=== PATIENT | female | born 1990 | race Caucasian/White ===

== ENCOUNTER 2020-05-12 21:56 | Emergency (ER) | payer OTHER ==
[~2020-05-12] VITALS: Ht 170 cm; Wt 99.7 kg
--- NOTE | 2020-05-12 22:07 | ED Cardiac General ---
History of Present Illness General Chief Complaint: Cardiac/General Problems Stated Complaint: PALPITATIONS Source: patient Exam Limitations: no limitations (OVI ANTONIO APRN) History of Present Illness Date Seen by Provider: May 12, 2020 Time Seen by Provider: 22:05 Initial Comments To ER with reports of palpitations. She had been feeling fine all day. They went shopping at [employer] in [place] when she became tachycardic and short of breath and "blacked out" for only a few seconds. She then went to [facility] in [place] and waited for about 5 hours and decided to come here. She has persistent sensation of tachycardia. She feels like her heart is beating fast she states. She also has some persistent shortness of breath. No cough no fevers. Timing/Duration: changing over time Severity: moderate Location: central Prior CP/Workup: no prior chest pain NTG SL SEO MARKETING SPECIALIST: No ASA po SEO MARKETING SPECIALIST: No Associated Systoms: Denies Symptoms (OVI ANTONIO APRN) Timing/Duration: 4-6 hours Prior CP/Workup: echocardiography (per patient, showed a mitral valve "leak" ), stress test (normal ) (OBED HUBBARD,MED STUDENT) Allergies and Home Medications Allergies Coded Allergies: bisacodyl (Verified Allergy, Unknown, 05/12/20) Patient Home Medication List Home Medication List Reviewed: Yes (OVI ANTONIO APRN) Review of Systems Review of Systems Constitutional: see HPI EENTM: No Symptoms Reported Respiratory: See HPI, Shortness of Air ( there were over 5) Cardiovascular: See HPI, Chest Pain Gastrointestinal: No Symptoms Reported Genitourinary: No Symptoms Reported Musculoskeletal: no symptoms reported Skin: no symptoms reported Psychiatric/Neurological: No Symptoms Reported Endocrine: No Symptoms Reported (OVI ANTONIO APRN) Gastrointestinal: Denies Nausea, Denies Vomiting Psychiatric/Neurological: Headache (mild frontal and posterior) (AMI HILL MD) Past Tgfzsdi-Ngukwi-Bldjmx Hx Patient Social History Recent Foreign Travel: No Contact w/Someone Who Travel: No (OVI ANTONIO APRN) Past Medical History Abdominal (gastric bypass ) Heart Murmur (mitral valve regurg ) (OBED HUBBARD,MED STUDENT) Physical Exam Vital Signs Capillary Refill : (OVI ANTONIO APRN) Height, Weight, BMI Height: '" Weight: lbs. oz. kg; BMI Method: General Appearance: No Apparent Distress, WD/WN, Anxious HEENT: PERRL/EOMI, TMs Normal Respiratory: No Accessory Muscle Use, No Respiratory Distress Cardiovascular: Regular Rate, Rhythm, Normal Peripheral Pulses, Other (rhythm is sinus rate is anywhere from 85-105. No ectopy.) Gastrointestinal: Normal Bowel Sounds, Non Tender, Soft Extremity: Normal Capillary Refill, Normal Inspection Neurologic/Psychiatric: Alert, Oriented x3 Skin: Normal Color, Warm/Dry (OVI ANTONIO METAL CONTROL COORDINATOR) Respiratory: Chest Non Tender (tenderness to palpation over ribs 2-5 anteriorly and laterally on the left ) (OBED HUBBARD,MED STUDENT) Progress/Results/Core Measures Progress Progress Note : Progress Note 9032: I have assumed care of the patient from Ovi Antonio pending labs and x- ray. No acute finding on chest x-ray. EKG does not show any significant abn ormalities. Labs have been reviewed and showed no concerning findings. She does follow with Dr. Rand. She also has review trainer in [place]. She was instructed to follow-up with her review trainer related to this. Also admits that she has migraine headaches that she only takes Botox for and she does have a mild headache today that may be a migraine variant/equivalent and this may be part of the cause of the situation today. We discussed further options for evaluation and treatment she would like to just go home and rest which I think is reasonable as well. Discharged home with return precautions. Patient verbalize understanding instructions and agreement with plan. (AMI HILL MD) Initial ECG Rhythm: Normal Sinus (OBED HUBBARD,MED STUDENT) Departure Impression Primary Impression: Syncope Qualified Codes: R55 - Syncope and collapse Additional Impressions: Palpitations Migraine Qualified Codes: G43.909 - Migraine, unspecified, not intractable, without status migrainosus Disposition: 01 HOME, SELF-CARE Condition: Improved Departure-Patient Inst. Decision time for Depature: 23:26 (AMI HILL MD) Patient Instructions: Syncope (Fainting) (DC), Migraines (DC), Palpitations (DC) Add. Discharge Instructions: All discharge instructions reviewed with patient and/or family. Voiced understanding. Continue home medications as previously prescribed. Follow-up with your primary care doctor and your review trainer for recheck and further evaluation. Call your review trainer for appointment. Return for worse pain, fever, vomiting, weakness, breathing problems or other concerns as needed. OVI ANTONIO APRN May 12, 2020 22:07 OBED HUBBARD,MED STUDENT May 12, 2020 22:27 AMI HILL MD May 12, 2020 23:28
--- NOTE | 2020-05-12 22:13 | ED Chest Pain ---
General Chief Complaint: Cardiac/General Problems Stated Complaint: PALPITATIONS Source: patient History of Present Illness Date Seen by Provider: May 12, 2020 Time Seen by Provider: 22:03 Timing/Duration: 4-6 hours Severity/Quality: moderate, dull, pressure Location: substernal, central Radiation: arms (leftarm ) Activities at Onset: activity (atthe store) Allergies and Home Medications Allergies Coded Allergies: bisacodyl (Verified Allergy, Unknown, 05/12/20) Past Rheylxr-Xjimaw-Drgxhh Hx Patient Social History Recent Foreign Travel: No Contact w/Someone Who Travel: No Physical Exam Vital Signs Capillary Refill : Height, Weight, BMI Height: '" Weight: lbs. oz. kg; BMI Method: OBED HUBBARD,MED STUDENT May 12, 2020 22:13
[2020-05-12] MEDS ORDERED: LORazepam INJ 2 MG/ML (ATIVAN) VIAL IVP ONE (22:30)
[2020-05-12 22:37] LABS: HEMOGLOBIN 14.4 g/dL (11.5-16.0); WHITE BLOOD COUNT 9.7 10^3/uL (4.3-11.0)
[2020-05-12 22:44] LABS: CHLORIDE 105 MMOL/L (98-107); POTASSIUM 3.6 MMOL/L (3.6-5.0); SODIUM 141 MMOL/L (135-145)
[2020-05-12 22:45] LABS: CALCIUM 9.2 MG/DL (8.5-10.1)
[2020-05-12 22:46] LABS: GLUCOSE 143 MG/DL (70-105)
[2020-05-12 22:47] LABS: CARBON DIOXIDE 24 MMOL/L (21-32)
[2020-05-12 22:50] LABS: CREATININE SERUM 0.79 MG/DL (0.60-1.30); GFR ESTIMATED > 60
[2020-05-12 22:51] LABS: BUN/CREATININE RATIO 14
[2020-05-12 23:37] VITALS: BP 138/89
--- NOTE | 2020-05-13 07:16 | Diagnostic Imaging Report ---
INDICATION: Palpitations. EXAMINATION: Chest 05/12/2020 FINDINGS: The cardiomediastinal silhouette is unremarkable. The pulmonary vasculature is within normal limits. The lungs and pleural spaces are clear. IMPRESSION: No evidence of an acute cardiopulmonary process. Dictated by: Dictated on workstation # [id number]
== END 2020-05-12 23:38 | disposition home or self-care (01) ==
LOC: ER 22:00
DX: R55 Syncope and collapse (principal); R00.2 Palpitations; F41.9 Anxiety disorder, unspecified; G43.909 Migraine, unspecified, not intractable, without status migrainosus; Z88.8 Allergy status to other drugs, medicaments and biological substances
CPT/HCPCS: 36415; 71045; 80048; 84443; 84703; 85027; 85379; 93005

== ENCOUNTER 2020-05-28 19:20 | Emergency (ER) | payer OTHER ==
[~2020-05-28] VITALS: Ht 170 cm; Wt 100.0 kg
[2020-05-28 19:26] VITALS: BP 116/80
--- NOTE | 2020-05-28 19:32 | ED General ---
General Stated Complaint: MIGRAINE;DIZZINESS Source of Information: Patient Exam Limitations: No Limitations History of Present Illness Date Seen by Provider: May 28, 2020 Time Seen by Provider: 19:30 Initial Comments To ER with reports of a migraine headache. She has a history of these since she was 4 years old. States this began mild and slowly got progressively worse. She is on morphine for history of the Alonso Danlos connective tissue disorder and fibromyalgia. She is unable to tolerate any NSAID she informs me due to history of gastric bypass. No head trauma. She does have photophobia and nausea. Timing/Duration: 1-2 Days Severity: Moderate Associated Systoms: Headaches Allergies and Home Medications Allergies Coded Allergies: bisacodyl (Verified Allergy, Unknown, 05/12/20) Patient Home Medication List Home Medication List Reviewed: Yes Review of Systems Review of Systems Constitutional: see HPI EENTM: see HPI Respiratory: no symptoms reported Cardiovascular: no symptoms reported Genitourinary: no symptoms reported Musculoskeletal: no symptoms reported Skin: no symptoms reported Psychiatric/Neurological: Headache Past Gcxwphw-Jpnsga-Fgvnxk Hx Patient Social History Type Used: Cigarettes Recent Foreign Travel: No Contact w/Someone Who Travel: No Past Medical History Abdominal Heart Murmur Physical Exam Vital Signs Vital Signs - First Documented 05/28/20 19:26 Temp 36.8 Pulse 81 Resp 16 B/P (MAP) 116/80 (92) Pulse Ox 99 O2 Delivery Room Air Capillary Refill : Height, Weight, BMI Height: '" Weight: lbs. oz. kg; 34.00 BMI Method: General Appearance: No Apparent Distress, WD/WN Eyes: Bilateral Eye Normal Inspection, Bilateral Eye PERRL, Bilateral Eye EOMI Neck: Full Range of Motion, Normal Inspection Respiratory: No Accessory Muscle Use, No Respiratory Distress Gastrointestinal: Non Tender, Soft Extremity: Normal Capillary Refill, Normal Inspection Neurologic/Psychiatric: Alert, Oriented x3 Skin: Normal Color, Warm/Dry Progress/Results/Core Measures Suspected Sepsis SIRS Temperature: Pulse: Respiratory Rate: Blood Pressure / Mean: Results/Orders My Orders Orders - OVI CASANOVA APRN Diphenhydramine Injection (Benadryl Inje (05/28/20 19:45) Prochlorperazine Injection (Compazine In (05/28/20 19:45) Sumatriptan Injection (Imitrex Injection (05/28/20 20:30) Medications Given in ED Current Medications Medications Dose Ordered Sig/Heron Route Start Time Stop Time Status Last Admin Dose Admin Diphenhydramine HCl 50 mg ONCE ONCE IM 05/28/20 19:45 05/28/20 19:46 DC 05/28/20 19:45 50 MG Prochlorperazine Edisylate 10 mg ONCE ONCE IM 05/28/20 19:45 05/28/20 19:46 DC 05/28/20 19:45 10 MG Sumatriptan Succinate 6 mg ONCE ONCE SQ 05/28/20 20:30 05/28/20 20:31 DC 05/28/20 20:28 6 MG Vital Signs/I&O 05/28/20 19:26 Temp 36.8 Pulse 81 Resp 16 B/P (MAP) 116/80 (92) Pulse Ox 99 O2 Delivery Room Air Capillary Refill : Departure Communication (Admissions) 2031-no improvement after Benadryl and Compazine. discssed with her that i dont like opiates for headaches. Recommended Cervical paraspinous injection at C6-C7 bupivacaine with epi which she agrees to 2032-less than one minute after injection, pt calls me to room to report complete resolution of pain. Would like to go home now. Impression Primary Impression: Migraine Disposition: 01 HOME, SELF-CARE Condition: Stable Departure-Patient Inst. Decision time for Depature: 19:31 Referrals: ANÍBAL TRUJILLO MD (PCP) [place] Care Physician [facility] [place] Primary Care Physician MALLORIE STUBBS BRIAN J MD Patient Instructions: HEADACHE Add. Discharge Instructions: 1. Return to ER for any worsening symptoms or other concerns. Follow-up with your doctor later this week. OVI CASANOVA REVIEW COORDINATOR May 28, 2020 19:32
[2020-05-28] MEDS ORDERED: PROCHLORPERAZINE 10 MG/2ML INJ (COMPAZINE) IM ONE (19:45)
[2020-05-28] MEDS ORDERED: diphenhydrAMINE 50 MG/ML INJ (BENADRYL) IM ONE (19:45)
[2020-05-28] MEDS ORDERED: SUMAtriptan 6 MG/0.5 ML (IMITREX) INJ SQ ONE (20:30)
== END 2020-05-28 20:36 | disposition home or self-care (01) ==
LOC: EDUNIT# 19:20 → ER 19:22
DX: G43.909 Migraine, unspecified, not intractable, without status migrainosus (principal); Z88.8 Allergy status to other drugs, medicaments and biological substances
CPT/HCPCS: 99284

== ENCOUNTER 2020-06-05 12:07 | Emergency (ER) | payer OTHER ==
[~2020-06-05] VITALS: Ht 170.1 cm; Wt 98.8 kg
--- NOTE | 2020-06-05 12:32 | ED EENT ---
History of Present Illness General Chief Complaint: Eye Problems Stated Complaint: DOUBLE VISION, UNABLE TO SEE Source: patient Exam Limitations: no limitations History of Present Illness Date Seen by Provider: Jun 05, 2020 Time Seen by Provider: 12:20 Initial Comments Patient is a 29-year-old female who presents to the emergency department today with a chief complaint of double vision. Patient states she had an acute onset of double vision on Tuesday. She states towards the evening time it seemed to get a little bit better but recurred again yesterday in the evening. And then she woke up with that much worse this morning. Patient has a history of "vestibular migraine" she takes morphine for chronic all over body pain and Flexeril as well. She states these medications did not help her double vision. She did see her primary care doctor yesterday as she thought may be she was low on her vitamins (she is a gastric bypass patient). She had a B12 injection and took some extra B12 and states that she felt a little better after that but the vision did not clear. Patient denies any new onset headache. She has a little bit of balance problems because of her double vision. She denies any hearing changes new onset weakness numbness or tingling. No recent fevers chills cough congestion or sick contacts. All other review of systems reviewed and negative except as stated above. Timing/Duration: abrupt Location: eye (R), eye (L) Prearrival Treatment: no prearrival treatment Associated Symptoms: denies symptoms Allergies and Home Medications Allergies Coded Allergies: bisacodyl (Verified Allergy, Unknown, 05/12/20) Patient Home Medication List Home Medication List Reviewed: Yes Review of Systems Review of Systems Constitutional: no symptoms reported Eyes: Blurred Vision, Vision Changes (Blurred vision out of her right eye more than her left eye and vertical described double vision); Denies Contact Lenses Ears: No Symptoms Reported Nose: no symptoms reported Mouth: no symptoms reported Throat: no symptoms reported Respiratory: no symptoms reported Cardiovascular: no symptoms reported : No Musculoskeletal: no symptoms reported Skin: no symptoms reported Hematologic/Lymphatic: No Symptoms Reported Past Jhwceqp-Mwntxh-Kypfcg Hx Patient Social History Alcohol Use: Denies Use Recreational Drug Use: No Smoking Status: Current Everyday Smoker Type Used: Cigarettes 2nd Hand Smoke Exposure: Yes Recent Foreign Travel: No Contact w/Someone Who Travel: No Recent Hopitalizations: No Physical Abuse: No Sexual Abuse: No Mistreated: No Fear: No Immunizations Up To Date Tetanus Booster (TDap): Unknown Seasonal Allergies Seasonal Allergies: No Past Medical History Surgeries: Yes Abdominal Respiratory: No Cardiac: Yes Heart Murmur Neurological: Yes Headaches /Migraines Genitourinary: No Gastrointestinal: No Musculoskeletal: Yes (eds) Fibromyalgia Endocrine: No HEENT: No Cancer: No Psychosocial: No Integumentary: No Blood Disorders: No Physical Exam Vital Signs Vital Signs - First Documented 06/05/20 12:10 Temp 36.7 Pulse 97 Resp 20 B/P (MAP) 123/78 (93) Pulse Ox 98 O2 Delivery Room Air Height, Weight, BMI Height: '" Weight: lbs. oz. kg; 34.00 BMI Method: General Appearance: WD/WN, no apparent distress Eyes: bilateral eye normal inspection, bilateral eye PERRL, bilateral eye EOMI Ears: bilateral ear auricle normal, bilateral ear canal normal, bilateral ear TM normal Nose: normal inspection Mouth/Throat: normal mouth inspection Neck: full range of motion, normal inspection Cardiovascular: regular rate, rhythm, no murmur Respiratory: lungs clear, normal breath sounds, no respiratory distress, no accessory muscle use Gastrointestinal: normal bowel sounds, non tender, soft Neurologic/Psychiatric: magnetic prospecting operator II-XII nml as tested, no motor/sensory deficits, alert, normal mood/affect, oriented x 3, other (Patient is able to complete oammmf-mi-jlwj with minimal difficulty, negative Romberg sign, normal strength and sensation) Skin: normal color, warm/dry Progress/Results/Core Measures Results/Orders My Orders Orders - GIBSON OLIVEROS MD Ct Head Wo (06/05/20 12:26) Vital Signs/I&O 06/05/20 12:10 Temp 36.7 Pulse 97 Resp 20 B/P (MAP) 123/78 (93) Pulse Ox 98 O2 Delivery Room Air Progress Progress Note : Time: 13:08 Progress Note 29-year-old female presents to the emergency department with an acute onset of double vision in the last 2 days. Evaluation today includes physical exam with neurologic evaluation. Patient has no evidence on exam of a extraocular muscle palsy. Funduscopic exam is normal. Patient has binocular double vision in all arellano of gaze. CT scan of the head without contrast is unremarkable. Patient has been seen by her primary care physician and had a B12 injection. I have no objective findings to call ophthalmology urgently. Plan is to patch 1 eye and have the patient follow-up with her hydrochloric manufacturing supervisor/urgent care physician assistant. Patient is agreeable with this plan of care. She verbalized understanding, all questions are sought and answered. 1330 L eye 20/30 R eye 20/40 bilateral - unable to complete eye exam We will patch the patient's right eye and refer her to optometry/ophthalmology Diagnostic Imaging Diagonstic Imaging: CT Plain Films/CT/US/NM/MRI: head Comments [facility] [place] NAME: NATASHA MORENO [facility] REC#: [id number] PT STATUS: PRE ER : 1990 PHYSICIAN: GIBSON OLIVEROS MD ADMIT DATE: 06/05/20/ER Draft Date of Exam:06/05/20 CT HEAD WO PROCEDURE: CT head without contrast. TECHNIQUE: Multiple contiguous axial images were obtained through the brain without the use of intravenous contrast. Auto Exposure Controls were utilized during the CT exam to meet ALARA standards for radiation dose reduction. INDICATION: Blurry vision and vertigo for 2 days COMPARISON: None FINDINGS: The ventricles and cortical sulci are age-appropriate. There is no midline shift or mass effect. No acute intracranial hemorrhage is seen. There is no CT evidence of acute territorial ischemia. The calvarium is intact. Visualized paranasal sinuses are clear. IMPRESSION: 1. No acute intracranial hemorrhage or CT evidence of acute territorial ischemia. Dictated on workstation # [id number] Dict: 06/05/20 1255 Trans: 06/05/20 1301 CV [id number] Interpreted by: NATALEE CROUCH MD Electronically signed by: Departure Impression Primary Impression: Vertical diplopia Disposition: 01 HOME, SELF-CARE Condition: Stable Departure-Patient Inst. Decision time for Depature: 13:10 Referrals: ANÍBAL TRUJILLO MD (PCP/Family) Primary Care Physician Patient Instructions: Double Vision Add. Discharge Instructions: Keep a patch on one eye to improve your vision until you have follow-up with your eye doctor and family practice doctor. Return to the emergency room for any worsening vision changes, severe headache, other emergent concerning symptoms All discharge instructions reviewed with patient and/or family. Voiced understanding. GIBSON OLIVEROS MD Jun 05, 2020 12:32
--- NOTE | 2020-06-05 13:02 | Diagnostic Imaging Report ---
PROCEDURE: CT head without contrast. TECHNIQUE: Multiple contiguous axial images were obtained through the brain without the use of intravenous contrast. Auto Exposure Controls were utilized during the CT exam to meet ALARA standards for radiation dose reduction. INDICATION: Blurry vision and vertigo for 2 days COMPARISON: None FINDINGS: The ventricles and cortical sulci are age-appropriate. There is no midline shift or mass effect. No acute intracranial hemorrhage is seen. There is no CT evidence of acute territorial ischemia. The calvarium is intact. Visualized paranasal sinuses are clear. IMPRESSION: 1. No acute intracranial hemorrhage or CT evidence of acute territorial ischemia. Dictated by: Dictated on workstation # [id number]
[2020-06-05 13:42] VITALS: BP 124/78
--- NOTE | 2020-06-05 13:42 | NUR ---
Pt' R eye patched prior to DC.
== END 2020-06-05 13:42 | disposition home or self-care (01) ==
LOC: EDUNIT# 12:07 → ER 12:09
DX: H53.2 Diplopia (principal); F17.210 Nicotine dependence, cigarettes, uncomplicated; Z88.8 Allergy status to other drugs, medicaments and biological substances
CPT/HCPCS: 70450

== ENCOUNTER 2020-06-10 17:54 | Emergency (ER) | payer OTHER ==
[~2020-06-10] VITALS: Ht 170 cm; Wt 99.0 kg
[2020-06-10] MEDS ORDERED: ONDANSETRON 4 MG/2 ML (SDV) Z0FRAN IVP ONE (18:15)
[2020-06-10] MEDS ORDERED: MECLIZINE 25 MG (ANTIVERT) TAB PO ONE (18:15)
[2020-06-10] MEDS ORDERED: SCOPOLAMINE 1.5 MG (TRANSDERM-SCOP) PATCH TD ONE (18:15)
[2020-06-10 18:28] LABS: BASOPHILS % (AUTO) 0 % (0-10); EOSINOPHILS # (AUTO) 0.1 10^3/uL (0.0-0.3); EOSINOPHILS % (AUTO) 1 % (0-10); HEMATOCRIT 47 % (35-52); HEMOGLOBIN 15.4 g/dL (11.5-16.0); LYMPHOCYTES # (AUTO) 2.1 10^3/uL (1.0-4.0); LYMPHOCYTES % (AUTO) 24 % (12-44); MEAN CORPUSCULAR HEMOGLOBIN 29 pg (25-34); MEAN CORPUSCULAR HGB CONC 33 g/dL (32-36); MEAN CORPUSCULAR VOLUME 88 fL (80-99); MEAN PLATELET VOLUME 11.5 fL (9.0-12.2); MONOCYTES # (AUTO) 0.5 10^3/uL (0.0-1.0); MONOCYTES % (AUTO) 6 % (0-12); NEUTROPHILS # (AUTO) 6.2 10^3/uL (1.8-7.8); NEUTROPHILS % (AUTO) 69 % (42-75); PLATELET COUNT 266 10^3/uL (130-400)
[2020-06-10 18:38] LABS: CHLORIDE 103 MMOL/L (98-107); POTASSIUM 3.7 MMOL/L (3.6-5.0); SODIUM 142 MMOL/L (135-145)
[2020-06-10 18:39] LABS: ALBUMIN 4.5 GM/DL (3.2-4.5)
[2020-06-10 18:39] LABS: BILIRUBIN,URINE NEGATIVE (NEGATIVE); CLARITY,URINE CLOUDY; COLOR,URINE YELLOW; GLUCOSE, URINE (UA) NEGATIVE (NEGATIVE); KETONES,URINE NEGATIVE (NEGATIVE); LEUKOCYTE ESTERASE ,URINE TRACE (NEGATIVE); NITRITE,URINE NEGATIVE (NEGATIVE); PROTEIN,URINE NEGATIVE (NEGATIVE)
[2020-06-10 18:40] LABS: CALCIUM 9.5 MG/DL (8.5-10.1)
[2020-06-10 18:41] LABS: GLUCOSE 112 MG/DL (70-105); TOTAL PROTEIN 7.3 GM/DL (6.4-8.2)
[2020-06-10 18:42] LABS: CARBON DIOXIDE 27 MMOL/L (21-32)
[2020-06-10 18:43] LABS: BILIRUBIN,TOTAL 0.5 MG/DL (0.1-1.0)
[2020-06-10 18:45] LABS: ALKALINE PHOSPHATASE 160 U/L (40-136); CREATININE SERUM 0.77 MG/DL (0.60-1.30); GFR ESTIMATED > 60
[2020-06-10 18:46] LABS: BUN/CREATININE RATIO 10
[2020-06-10 18:48] LABS: ALANINE AMINOTRANSFERASE 24 U/L (0-55); MAGNESIUM 2.2 MG/DL (1.6-2.4)
[2020-06-10 18:51] LABS: ACETAMINOPHEN < 10 UG/ML (10-30); PROTHROMBIN TIME PATIENT 13.5 SEC (12.2-14.7)
[2020-06-10 18:55] LABS: AMPHETAMINE SCREEN, URINE NEGATIVE (NEGATIVE); BARBITURATE SCREEN URINE NEGATIVE (NEGATIVE); BENZODIAZEPINES SCREEN URINE NEGATIVE (NEGATIVE); CANNABINOID SCREEN, URINE NEGATIVE (NEGATIVE); COCAINE SCREEN URINE NEGATIVE (NEGATIVE); METHADONE STAT NEGATIVE (NEGATIVE); METHAMPHETAMINE SCREEN URINE S NEGATIVE (NEGATIVE); OPIATE SCREEN URINE POSITIVE (NEGATIVE); OXYCODONE STAT NEGATIVE (NEGATIVE); PROPOXYPHENE STAT NEGATIVE (NEGATIVE); TRICYCLIC ANTIDEPRESSANTS SCRE NEGATIVE (NEGATIVE)
[2020-06-10 19:03] LABS: BACTERIA,URINE LARGE /HPF
[2020-06-10 19:04] LABS: AMORPHOUS SEDIMENT,UR FEW AMOR URATES /LPF
--- NOTE | 2020-06-10 19:08 | Diagnostic Imaging Report ---
PROCEDURE: CT head wo r/o stroke. TECHNIQUE: Multiple contiguous axial images were obtained through the brain without the use of intravenous contrast. Auto Exposure Controls were utilized during the CT exam to meet ALARA standards for radiation dose reduction. INDICATION: Stroke, neurologic deficit COMPARISON: 06/05/2020 FINDINGS: No intracranial hemorrhage. No intracranial mass, mass effect, midline shift, herniation, hydrocephalus, or extra-axial fluid collection. No CT evidence of an acute ischemic infarction. The orbits are unremarkable. The calvarium and extracalvarial soft tissues are unremarkable. The visualized paranasal sinuses are clear. IMPRESSION: Stable examination without acute intracranial abnormality. Should symptoms persist, MRI of the brain would be recommended. Dictated by: Dictated on workstation # [id number]
--- NOTE | 2020-06-10 19:10 | ED General ---
General Chief Complaint: Dizziness/Syncope Stated Complaint: BLACK SPOTS IN L EYE/DIZZINESS/VERTIGO Nursing Triage Note: PT WAS SEEN HERE LAST WEEK WITH EYE PROBLEMS, CC TODAY OF DIZZINESS AND DOUBLE VISION. Nursing Sepsis Screen: No Definite Risk Source of Information: Patient History of Present Illness Date Seen by Provider: Jun 10, 2020 Time Seen by Provider: 18:01 Initial Comments PT ARRIVES VIA POV FROM HOME STATES SHE HAS BEEN HAVING THESE SYMPTOMS SINCE LAST Tuesday06/02/20 C/O PRESSURE BEHIND BOTH EYES STATES HER "VISION GOES IN AND OUT" ON BOTH EYES--VISION COMPLETELY GOES AWAY IN BOTH EYES AT TIMES STATES SHE HAS BEEN DIZZY STATES LAST TUESDAY SHE HAD DOUBLE VISION IN BOTH EYES AND IT WAS BLURRY THEN ON TUESDAY STATES "I HAD COMPLETE DOUBLE VISION--VERTICAL" AND CAME HERE. WORK UP AT THAT TIME, INCLUDING CT OF HEAD WAS NORMAL AND WAS REFERRED TO EYE DR. RIGHT EYE WAS PATCHED, AND REMAINS PATCHED. SAW DR. NUGENT, CLOTH EXAMINER, ON TUESDAY, AND WAS REFERRED TO NEUROLOGIST. HAS AN APPOINTMENT WITH DR. DALY AT [facility] 06/18/20 FOR THIS PROBLEM STATES LAST NIGHT SHE HAD A HEADACHE--COMES AND GOES--"LEFT TOP OF HEAD, AND BOTH SIDES OF BACK OF HEAD"--HAS NOT TAKEN ANYTHING FOR HER HEADACHE AT ANY TIME STATES SHE WOKE UP TODAY WITH DIZZINESS--STATES THE ROOM IS SPINNING AND HAS BEEN HAVING PROBLEMS WITH BALANCE TODAY STATES SHE HAS BLURRY VISION IN LEFT EYE TODAY AND "FLASHES" IN HER LEFT EYE TODAY HAS HAD NAUSEA, NO VOMITING TODAY. NO FEVER OR RECENT ILLNESS OR KNOWN EXPOSURE TO COVID-19 PT NORMALLY WEARS GLASSES PT JUST MOVED HERE FROM [place] PT SEEN HERE IN ER 05/12/20 FOR POSSIBLE SYNCOPAL EPISODE HERE 05/28/20 FOR "MIGRAINE" HERE 06/05/20 FOR THIS COMPLAINT STATES SHE HAD A HEART MONITOR ON, AND WAS REMOVED A WEEK AGO--STATES SHE HAS PALPITATIONS, FAST HEART RATE AND MITRAL VALVE LEAK PT TAKES MORPHINE DAILY, ALONG WITH FLEXERIL FOR CHRONIC GENERALIZED PAIN ALSO TAKES STRATTERA AND PRISTIQ, IN ADDITION TO OTHER MEDS PCP: DR. Tyler TRUJILLO/ [facility] STATES SHE JUST MOVED HERE FROM [place] Allergies and Home Medications Allergies Coded Allergies: bisacodyl (Verified Allergy, Unknown, 05/12/20) Home Medications Meclizine HCl 25 Mg Tablet, 50 MG PO Q6 PRN for DIZZINESS Prescribed by: ISIDRO STOVER on 06/10/202030 Methylprednisolone 4 Mg Tab.ds.pk, 4 MG PO UD PER DOSE PACK INSTRUCTIONS Prescribed by: ISIDRO STOVER on 06/10/202034 Nitrofurantoin Monohyd/M-Cryst 100 Mg Capsule, 1 TAB PO BID Prescribed by: ISIDRO STOVER on 06/10/202034 Ondansetron 4 Mg Tab.rapdis, 4 MG PO Q4H Prescribed by: ISIDRO STOVER on 06/10/202030 Scopolamine 1 Each Patch.td72, 1 EACH TD Q72H Prescribed by: ISIDRO STOVER on 06/10/202030 Patient Home Medication List Home Medication List Reviewed: Yes Review of Systems Review of Systems Constitutional: see HPI; No chills, No diaphoresis; dizziness; No fever, No malaise, No weakness EENTM: see HPI, blurred vision, double vision, eye pain Respiratory: no symptoms reported Cardiovascular: see HPI, palpitations Gastrointestinal: see HPI; No abdominal pain; nausea; No vomiting Genitourinary: no symptoms reported : No (IUD IN PLACE FOR YEARS--NO PERIODS) Musculoskeletal: no symptoms reported Skin: no symptoms reported Psychiatric/Neurological: See HPI, Headache; Denies Numbness, Denies Paresthesia, Denies Seizure, Denies Tingling, Denies Tremors, Denies Weakness Hematologic/Lymphatic: No Symptoms Reported Immunological/Allergic: no symptoms reported Past Qgghiwh-Xmmywa-Gnvirb Hx Past Med/Social Hx: Reviewed and Corrections made Patient Social History Alcohol Use: Past History Recreational Drug Use: No Smoking Status: Current Everyday Smoker (1 PPD) Type Used: Cigarettes 2nd Hand Smoke Exposure: Yes Recent Foreign Travel: No Contact w/Someone Who Travel: No Recent Infectious Disease Expo: No Recent Hopitalizations: No Physical Abuse: No Sexual Abuse: No Mistreated: No Fear: No Immunizations Up To Date Tetanus Booster (TDap): Unknown Seasonal Allergies Seasonal Allergies: No Past Medical History Surgeries: Yes (GASTRIC BYPASS WITH REVISION) Abdominal, Gallbladder Respiratory: No Cardiac: Yes (MITRAL VALVE LEAK) Heart Murmur, Palpitations Neurological: Yes Headaches /Migraines : 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 oz. kg; 34.00 BMI Method: General Appearance: No Apparent Distress, WD/WN HEENT: PERRL/EOMI, TMs Normal, Normal ENT Inspection, Pharynx Normal; No Photophobia; Other (RIGHT EYE PATCH REMOVED FOR EXAM AND THEN REPLACED. GROSS EXAM OF EYE--NO OBVIOUS RETINAL BLEEDING OR GROSS ABNORMALITY) Neck: Full Range of Motion, Normal Inspection, Non Tender, Supple Respiratory: Normal Breath Sounds, No Accessory Muscle Use, No Respiratory Distress Cardiovascular: Regular Rate, Rhythm, No Edema, No JVD, No Murmur, Normal Peripheral Pulses Gastrointestinal: Non Tender, Soft Back: Normal Inspection Extremity: Normal Inspection Neurologic/Psychiatric: Alert, Oriented x3, No Motor/Sensory Deficits, Normal Mood/Affect, engineering technologist II-XII Norm as Tested; No Abnormal Cerebellar Tests Skin: Normal Color, Warm/Dry, Tattoos/Piercings (MULTIPLE TATTOOS) Progress/Results/Core Measures Suspected Sepsis Recent Fever Within 48 Hours: No Infection Criteria Present: None New/Unexplained Altered Menta: No Sepsis Screen: No Definite Risk SIRS Temperature: Pulse: 91 Respiratory Rate: 20 Laboratory Tests 06/10/20 18:15: White Blood Count 9.0 Blood Pressure 128 /87 Mean: 101 Laboratory Tests 06/10/20 18:15: Creatinine 0.77, INR Comment 1.0, Platelet Count 266, Total Bilirubin 0.5 Results/Orders Lab Results Laboratory Tests Test 06/10/20 18:15 06/10/20 18:25 Range/Units White Blood Count 9.0 4.3-11.0 10^3/uL Red Blood Count 5.31 H 3.80-5.11 10^6/uL Hemoglobin 15.4 11.5-16.0 g/dL Hematocrit 47 35-52 % Mean Corpuscular Volume 88 80-99 fL Mean Corpuscular Hemoglobin 29 25-34 pg Mean Corpuscular Hemoglobin Concent 33 32-36 g/dL Red Cell Distribution Width 12.6 10.0-14.5 % Platelet Count 266 130-400 10^3/uL Mean Platelet Volume 11.5 9.0-12.2 fL Immature Granulocyte % (Auto) 0 % Neutrophils (%) (Auto) 69 42-75 % Lymphocytes (%) (Auto) 24 12-44 % Monocytes (%) (Auto) 6 0-12 % Eosinophils (%) (Auto) 1 0-10 % Basophils (%) (Auto) 0 0-10 % Neutrophils # (Auto) 6.2 1.8-7.8 10^3/uL Lymphocytes # (Auto) 2.1 1.0-4.0 10^3/uL Monocytes # (Auto) 0.5 0.0-1.0 10^3/uL Eosinophils # (Auto) 0.1 0.0-0.3 10^3/uL Basophils # (Auto) 0.0 0.0-0.1 10^3/uL Immature Granulocyte # (Auto) 0.0 0.0-0.1 10^3/uL Erythrocyte Sedimentation Rate 14 0-20 MM/HR Prothrombin Time 13.5 12.2-14.7 SEC INR Comment 1.0 0.8-1.4 Activated Partial Thromboplast Time 30 24-35 SEC Sodium Level 142 135-145 MMOL/L Potassium Level 3.7 3.6-5.0 MMOL/L Chloride Level 103 98-107 MMOL/L Carbon Dioxide Level 27 21-32 MMOL/L Anion Gap 12 5-14 MMOL/L Blood Urea Nitrogen 8 7-18 MG/DL Creatinine 0.77 0.60-1.30 MG/DL Estimat Glomerular Filtration Rate > 60 BUN/Creatinine Ratio 10 Glucose Level 112 H 70-105 MG/DL Calcium Level 9.5 8.5-10.1 MG/DL Corrected Calcium 9.1 8.5-10.1 MG/DL Magnesium Level 2.2 1.6-2.4 MG/DL Total Bilirubin 0.5 0.1-1.0 MG/DL Aspartate Amino Transf (AST/SGOT) 15 5-34 U/L Alanine Aminotransferase (ALT/SGPT) 24 0-55 U/L Alkaline Phosphatase 160 H 40-136 U/L Total Protein 7.3 6.4-8.2 GM/DL Albumin 4.5 3.2-4.5 GM/DL Serum Test, Qualitative NEGATIVE NEGATIVE Acetaminophen Level < 10 L 10-30 UG/ML Serum Alcohol < 10 <10 MG/DL Urine Color YELLOW Urine Clarity CLOUDY Urine pH 6.0 5-9 Urine Specific [place] 1.025 H 1.016-1.022 Urine Protein NEGATIVE NEGATIVE Urine Glucose (UA) NEGATIVE NEGATIVE Urine Ketones NEGATIVE NEGATIVE Urine Nitrite NEGATIVE NEGATIVE Urine Bilirubin NEGATIVE NEGATIVE Urine Urobilinogen 1.0 < = 1.0 MG/DL Urine Leukocyte Esterase TRACE H NEGATIVE Urine RBC (Auto) NEGATIVE NEGATIVE Urine RBC NONE /HPF Urine WBC 5-10 H /HPF Urine Crystals PRESENT H /LPF Urine Amorphous Sediment FEW KALEN URATES H /LPF Urine Bacteria LARGE H /HPF Urine Casts NONE /LPF Urine Mucus NEGATIVE /LPF Urine Culture Indicated YES Urine Opiates Screen POSITIVE H NEGATIVE Urine Oxycodone Screen NEGATIVE NEGATIVE Urine Methadone Screen NEGATIVE NEGATIVE Urine Propoxyphene Screen NEGATIVE NEGATIVE Urine Barbiturates Screen NEGATIVE NEGATIVE Ur Tricyclic Antidepressants Screen NEGATIVE NEGATIVE Urine Phencyclidine Screen NEGATIVE NEGATIVE Urine Amphetamines Screen NEGATIVE NEGATIVE Urine Methamphetamines Screen NEGATIVE NEGATIVE Urine Benzodiazepines Screen NEGATIVE NEGATIVE Urine Cocaine Screen NEGATIVE NEGATIVE Urine Cannabinoids Screen NEGATIVE NEGATIVE My Orders Orders - ISIDRO STOVER K DO Acetaminophen (06/10/20 18:09) Alcohol (06/10/20 18:09) Cbc With Automated Diff (06/10/20 18:09) Comprehensive Metabolic Panel (06/10/20 18:09) Drug Screen Stat (Urine) (06/10/20 18:09) Hcg,Qualitative Serum (06/10/20 18:09) Magnesium (06/10/20 18:09) Protime With Inr (06/10/20 18:09) Partial Thromboplastin Time (06/10/20 18:09) Ua Culture If Indicated (06/10/20 18:09) Erythrocyte Sedimentation Rate (06/10/20 18:09) Ed Iv/Invasive Line Start (06/10/20 18:09) Ekg Tracing (06/10/20 18:09) Monitor-Rhythm Ecg Trace Only (06/10/20 18:09) Ct Head Wo-R/O Stroke (06/10/20 18:09) Scopolamine Patch (Transderm-Scop Patch) (06/10/20 18:15) Meclizine Tablet (Antivert Tablet) (06/10/20 18:15) Ondansetron Injection (Zofran Injectio (06/10/20 18:15) Urine Culture (06/10/20 18:25) Ct Angio Head/Neck (06/10/20 19:10) Iohexol Injection (Omnipaque 350 Mg/Ml 1 (06/10/20 19:15) Received Contrast (Hold Metformin- Contr (06/10/20 19:15) Ns (Ivpb) (Sodium Chloride 0.9% Ivpb Bag (06/10/20 19:15) Methylprednisolone Sod Succ (Solu-Medrol (06/10/20 20:45) Rx-Nitrofurantoin [place] (Rx-Macrobid) (06/10/20 20:34) Rx-Meclizine Hcl (Rx-Antivert) (06/10/20 20:34) Rx-Ondansetron Po (Rx-Zofran Po) (06/10/20 20:34) Medications Given in ED Vital Signs/I&O Capillary Refill : Less Than 3 Seconds Blood Pressure Mean: 101 Progress Note : Progress Note UNEVENTFUL ER STAY NAUSEA AND DIZZINESS IMPROVED AT DISMISSAL WALKS WITHOUT DIFFICULTY ECG Initial ECG Impression Date: Jun 10, 2020 Initial ECG Impression Time: 18:28 Initial ECG Rate: 81 Initial ECG Rhythm: Normal Sinus Diagnostic Imaging Comments CT HEAD--PER RADIOLOGIST REPORT AT 1909 FINDINGS: No intracranial hemorrhage. No intracranial mass, mass effect, midline shift, herniation, hydrocephalus, or extra-axial fluid collection. No CT evidence of an acute ischemic infarction. The orbits are unremarkable. The calvarium and extracalvarial soft tissues are unremarkable. The visualized paranasal sinuses are clear. IMPRESSION: Stable examination without acute intracranial abnormality. CT ANGIOGRAM HEAD/NECK--PER RADIOLOGIST REPORT AT 2028 IMPRESSION: The mid right vertebral artery demonstrates an abnormal course as it extends anterior to the right transverse process. However, there is no evidence of occlusion, hemodynamically significant stenosis, dissection, aneurysm, or pseudoaneurysm at this location or elsewhere within the large arterial structures of the head and neck. Reviewed: Reviewed by Me Departure Impression Primary Impression: Dizziness Additional Impressions: Vertical diplopia Headache UTI (urinary tract infection) Disposition: HOME, SELF-CARE Condition: Stable Departure-Patient Inst. Referrals: ANÍBAL TRUJILLO MD (PCP/Family) Primary Care Physician Patient Instructions: Headache, Adult (DC), Double Vision (DC), Vertigo (a Type of Dizziness) (DC), Urinary Tract Infection, Adult (DC) Add. Discharge Instructions: LEAVE SCOPOLAMINE PATCH IN PLACE FOR 72 HOURS SLOW POSITION CHANGES CONTINUE YOUR CURRENT MEDICATIONS PRESCRIBED FOLLOW UP WITH NEUROLOGIST NEXT WEEK SCHEDULED RETURN TO ER IF WORSE All discharge instructions reviewed with patient and/or family. Voiced understanding. Scripts Methylprednisolone (Medrol) 4 Mg Tab.ds.pk 4 MG PO UD for 6 Days, #21 PKG PER DOSE PACK INSTRUCTIONS Prov: ISIDRO STOVER DO 06/10/20 Nitrofurantoin Monohyd/M-Cryst (Macrobid 100 mg Capsule) 100 Mg Capsule 1 TAB PO BID, #20 CAP Prov: ISIDRO STOVER DO 06/10/20 Meclizine HCl (Meclizine HCl) 25 Mg Tablet 50 MG PO Q6 PRN for DIZZINESS, #15 TAB Prov: ISIDRO STOVER DO 06/10/20 Ondansetron (Ondansetron Odt) 4 Mg Tab.rapdis 4 MG PO Q4H for Nausea/Vomiting, #10 TAB Prov: ISIDRO STOVER DO 06/10/20 Scopolamine (Transderm-Scop) 1 Each Patch.td72 1 EACH TD Q72H, #3 PATCH Prov: ISIDRO STOVER DO 06/10/20 ISIDRO STOVER DO Jun 10, 2020 19:10
[2020-06-10] MEDS ORDERED: NS 100 ML (IVPB) BAG IV ONE (19:15)
[2020-06-10] MEDS ORDERED: HOLD METFORMIN - RECEIVED CONTRAST 20 ML VIAL IV SCH (19:15)
[2020-06-10] MEDS ORDERED: IOHEXOL 350 MG/ML 100 ML (OMNIPAQUE 350) VIAL IV ONE (19:15)
[2020-06-10 19:16] LABS: ERYTHROCYTE SEDIMENTATION RATE 14 MM/HR (0-20)
--- NOTE | 2020-06-10 20:14 | Diagnostic Imaging Report ---
PROCEDURE: CT angiography of the head and CT angiography of the neck with and without contrast. TECHNIQUE: Contiguous noncontrast images were obtained from the skull base through the vertex. After intravenous contrast administration, helical CT angiography of the neck was performed. Source data was reformatted into 3D MIP projections. Delayed post contrast acquisition was also obtained. Auto Exposure Controls were utilized during the CT exam to meet ALARA standards for radiation dose reduction. INDICATION: Dizziness, blurry vision COMPARISON: Imaging from same date as well as from 06/05/2020 FINDINGS: No intracranial midline shift, hydrocephalus, or herniation. No enhancing intracranial mass. The orbits are unremarkable. The paranasal sinuses are clear. The calvarium and extracalvarial soft tissues are unremarkable. The parapharyngeal fat is symmetric and well-maintained. Muscles of mastication are unremarkable. The salivary glands are unremarkable. The thyroid gland is unremarkable. The airway is patent. No focal fluid collection. No apical pneumothorax. A three-vessel aortic arch is present. No evidence of occlusion, hemodynamically significant stenosis, aneurysm, pseudoaneurysm, or dissection involving the large arterial structures of the head and neck. The right vertebral artery demonstrates a slightly atypical course as it is anterior to the right transverse processes as opposed to the right transverse foramina at C4, C5, and C6. Large dural venous sinuses appear patent. Alignment of the cervical spine is well maintained. Vertebral body heights and disc spaces are well-maintained. No acute fracture. IMPRESSION: The mid right vertebral artery demonstrates an abnormal course as it extends anterior to the right transverse process. However, there is no evidence of occlusion, hemodynamically significant stenosis, dissection, aneurysm, or pseudoaneurysm at this location or elsewhere within the large arterial structures of the head and neck. Dictated by: Dictated on workstation # [id number]
[2020-06-10] MEDS ORDERED: ONDA4TAB11 PO (20:31)
[2020-06-10] MEDS ORDERED: SCOP1PAT11 TD (20:31)
[2020-06-10] MEDS ORDERED: MECL-149 PO (20:31)
[2020-06-10] MEDS ORDERED: RX-MECLIZINE HCL (ANTIVERT) 25 MG TAB #4 PPK PO STA (20:34)
[2020-06-10] MEDS ORDERED: RX-ONDANSETRON 4 MG ODT (ZOFRAN) PPK #4 PO STA (20:34)
[2020-06-10] MEDS ORDERED: RX-NITROFURANTOIN 100 MG (MACROBID) CAP PPK#2 PO STA (20:34)
[2020-06-10] MEDS ORDERED: NITR-65 PO (20:35)
[2020-06-10] MEDS ORDERED: METH4TAB PO (20:35)
[2020-06-10] MEDS ORDERED: methylPREDNISolone 125 MG (Solu-MEDROL) VIAL IVP ONE (20:45)
[2020-06-10 20:53] VITALS: BP 95/67
== END 2020-06-10 20:53 | disposition home or self-care (01) ==
LOC: EDUNIT# 17:54 → ER 17:57
DX: R42 Dizziness and giddiness (principal); H53.2 Diplopia; R51.9 Headache, unspecified; N39.0 Urinary tract infection, site not specified; F17.210 Nicotine dependence, cigarettes, uncomplicated; Z88.8 Allergy status to other drugs, medicaments and biological substances
CPT/HCPCS: 70450; 70496; 70498; 80053; 80306; 81000; 83735; 84703; 85025; 85610; 85652; 85730; 87088; 93005; 93041; 99284; G0480 ×2; 36415; 80320; 80329

== ENCOUNTER 2020-08-24 23:49 | Emergency (ER) | payer OTHER ==
[~2020-08-24 23:49] MED LIST: MECL-149 PO; METH4TAB PO; NITR-65 PO; ONDA4TAB11 PO; SCOP1PAT11 TD
[2020-08-25] MEDS ORDERED: LACTATED RINGERS 1,000 ML IV ONE (00:15)
--- NOTE | 2020-08-25 00:25 | ED Neurological Problem ---
General Stated Complaint: SOB;GENERAL BODY WEAKNESS;DIFFICULTY SPEAKING Source: patient Exam Limitations: no limitations History of Present Illness Date Seen by Provider: Aug 25, 2020 Time Seen by Provider: 00:01 Initial Comments Here with report of a variety of complaints including occasionally just losing muscle tone in different areas of her body including her arms and legs. Also reports difficulty speaking. She is not sure what is going on. This has been going on for a week. She has several presentations since May for migraines or dizziness or combinations. She apparently sees a neurologist in [place]. She called her neurologist who instructed her to go to the emergency department at [facility]. She went there on , 08/21/2020 and had work-up. This work-up apparently included CT scan of the head and MRI as well as labs. She states they could not find anything and she was discharged. Comes in [facility] for continuation of these problems. She is also had [address] scans of her head without contrast and 1 CTA of the head and neck, all within the last 3 months. All of this work-up has been negative. Patient states that she has had this intermittently over the last 2 years and nobody can seem to find the problem. Reports taking cyclobenzaprine and ondansetron. Historically she was on mental health meds per previous records but does not admit to that currently. Does admit to taking morphine that she is apparently prescribed from [place] for all over body aches. Does not show any prescriptions from here. She states that she moved here a year ago but apparently is still getting medications through [place]. Had previously seen Dr. Aníbal Trujillo but states she does not anymore because they had a disagreement and she is looking for another doctor. Timing/Duration: 1 week, episodic, waxing and waning Severity: moderate Associated Symptoms: No fever/chills; muscle spasms; No nausea/vomiting; trouble walking, weakness Allergies and Home Medications Allergies Coded Allergies: bisacodyl (Verified Allergy, Unknown, 05/12/20) Home Medications Meclizine HCl 25 Mg Tablet, 50 MG PO Q6 PRN for DIZZINESS Prescribed by: ISIDRO STOVER on 06/10/202030 Methylprednisolone 4 Mg Tab.ds.pk, 4 MG PO UD PER DOSE PACK INSTRUCTIONS Prescribed by: ISIDRO STOVER on 06/10/202034 Nitrofurantoin Monohyd/M-Cryst 100 Mg Capsule, 1 TAB PO BID Prescribed by: ISIDRO STOVER on 06/10/202034 Ondansetron 4 Mg Tab.rapdis, 4 MG PO Q4H Prescribed by: ISIDRO STOVER on 06/10/202030 Scopolamine 1 Each Patch.td72, 1 EACH TD Q72H Prescribed by: ISIDRO STOVER on 06/10/202030 Patient Home Medication List Home Medication List Reviewed: Yes Review of Systems Review of Systems Constitutional: see HPI; No chills, No fever Eyes: See HPI Ears, Nose, Mouth, Throat: no symptoms reported Respiratory: No cough, No wheezing Cardiovascular: No chest pain, No edema Gastrointestinal: No abdominal pain, No nausea, No vomiting Genitourinary: No dysuria, No incontinence Musculoskeletal: muscle twitching, muscle weakness Skin: no symptoms reported All Other Systems Reviewed Negative Unless Noted: Yes Past Metvdqz-Twhmld-Xjgtjq Hx Past Med/Social Hx: Reviewed Nursing Past Med/Soc Hx Patient Social History Alcohol Use: Denies Use Smoking Status: Current Everyday Smoker Type Used: Cigarettes 2nd Hand Smoke Exposure: Yes Recent Hopitalizations: No Immunizations Up To Date Tetanus Booster (TDap): Unknown Seasonal Allergies Seasonal Allergies: No Past Medical History Surgeries: Yes (GASTRIC BYPASS WITH REVISION) Abdominal, Gallbladder Respiratory: No Cardiac: Yes (MITRAL VALVE LEAK) Heart Murmur, Palpitations Neurological: Yes 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 oz. kg; 34.00 BMI Method: General Appearance: WD/WN, no apparent distress, obese HEENT: PERRL/EOMI, TMs normal, pharynx normal Neck: full range of motion, supple Respiratory: lungs clear, normal breath sounds Cardiovascular: regular rate, rhythm, no murmur Peripheral Pulses: 2+ Dorsalis Pedis (R), 2+ Left Dors-Pedis (L), 2+ Radial Pulses (R), 2+ Radial Pulses (L) Gastrointestinal: non tender, soft Back: normal inspection, no CVA tenderness, no vertebral tenderness Extremities: non-tender, normal inspection Neurologic/Psychiatric: alert, oriented x 3 Crainal Nerves: normal hearing, PERRL, other (Speech occasional slurred or stuttering but at times perfect.) Coordination/Gait: abnormal gait, other (Walks around appears to occasionally lose muscle tone. These events are sporadic and do not follow typical pattern for muscle weakness as she seems to have tone with variable effort.) Motor/Sensory: other (Able to stand without assistance and position self on bed. Moves all 4 extremities equally. No facial droop noted. Bilateral strength equal upper and lower extremities.) Skin: normal color, warm/dry Progress/Results/Core Measures Results/Orders Lab Results Laboratory Tests Test 08/25/20 00:30 08/25/20 00:45 Range/Units White Blood Count 7.9 4.3-11.0 10^3/uL Red Blood Count 4.93 3.80-5.11 10^6/uL Hemoglobin 14.0 11.5-16.0 g/dL Hematocrit 43 35-52 % Mean Corpuscular Volume 87 80-99 fL Mean Corpuscular Hemoglobin 28 25-34 pg Mean Corpuscular Hemoglobin Concent 33 32-36 g/dL Red Cell Distribution Width 12.8 10.0-14.5 % Platelet Count 242 130-400 10^3/uL Mean Platelet Volume 11.7 9.0-12.2 fL Immature Granulocyte % (Auto) 0 % Neutrophils (%) (Auto) 58 42-75 % Lymphocytes (%) (Auto) 33 12-44 % Monocytes (%) (Auto) 7 0-12 % Eosinophils (%) (Auto) 2 0-10 % Basophils (%) (Auto) 1 0-10 % Neutrophils # (Auto) 4.6 1.8-7.8 10^3/uL Lymphocytes # (Auto) 2.6 1.0-4.0 10^3/uL Monocytes # (Auto) 0.6 0.0-1.0 10^3/uL Eosinophils # (Auto) 0.1 0.0-0.3 10^3/uL Basophils # (Auto) 0.0 0.0-0.1 10^3/uL Immature Granulocyte # (Auto) 0.0 0.0-0.1 10^3/uL D-Dimer 0.12 0.00-0.49 UG/ML Sodium Level 144 135-145 MMOL/L Potassium Level 3.8 3.6-5.0 MMOL/L Chloride Level 110 H 98-107 MMOL/L Carbon Dioxide Level 24 21-32 MMOL/L Anion Gap 10 5-14 MMOL/L Blood Urea Nitrogen 11 7-18 MG/DL Creatinine 0.74 0.60-1.30 MG/DL Estimat Glomerular Filtration Rate > 60 BUN/Creatinine Ratio 15 Glucose Level 102 70-105 MG/DL Calcium Level 8.9 8.5-10.1 MG/DL Corrected Calcium 8.9 8.5-10.1 MG/DL Magnesium Level 1.9 1.6-2.4 MG/DL Total Bilirubin 0.3 0.1-1.0 MG/DL Aspartate Amino Transf (AST/SGOT) 18 5-34 U/L Alanine Aminotransferase (ALT/SGPT) 24 0-55 U/L Alkaline Phosphatase 137 H 40-136 U/L C-Reactive Protein High Sensitivity 0.34 0.00-0.50 MG/DL Total Protein 6.5 6.4-8.2 GM/DL Albumin 4.0 3.2-4.5 GM/DL TSH [place] Testing 1.02 0.35-4.94 UIU/ML Serum Test, Qualitative NEGATIVE NEGATIVE Salicylates Level < 5.0 L 5.0-20.0 MG/DL Acetaminophen Level < 10 L 10-30 UG/ML Serum Alcohol < 10 <10 MG/DL Urine Color YELLOW Urine Clarity SL CLOUDY Urine pH 6.0 5-9 Urine Specific [place] 1.010 L 1.016-1.022 Urine Protein NEGATIVE NEGATIVE Urine Glucose (UA) NEGATIVE NEGATIVE Urine Ketones NEGATIVE NEGATIVE Urine Nitrite NEGATIVE NEGATIVE Urine Bilirubin NEGATIVE NEGATIVE Urine Urobilinogen 0.2 < = 1.0 MG/DL Urine Leukocyte Esterase NEGATIVE NEGATIVE Urine RBC (Auto) NEGATIVE NEGATIVE Urine RBC NONE /HPF Urine WBC RARE /HPF Urine Squamous Epithelial Cells 2-5 /HPF Urine Crystals NONE /LPF Urine Bacteria TRACE /HPF Urine Casts NONE /LPF Urine Mucus NEGATIVE /LPF Urine Culture Indicated NO Urine Opiates Screen POSITIVE H NEGATIVE Urine Oxycodone Screen NEGATIVE NEGATIVE Urine Methadone Screen NEGATIVE NEGATIVE Urine Propoxyphene Screen NEGATIVE NEGATIVE Urine Barbiturates Screen NEGATIVE NEGATIVE Ur Tricyclic Antidepressants Screen NEGATIVE NEGATIVE Urine Phencyclidine Screen NEGATIVE NEGATIVE Urine Amphetamines Screen NEGATIVE NEGATIVE Urine Methamphetamines Screen NEGATIVE NEGATIVE Urine Benzodiazepines Screen NEGATIVE NEGATIVE Urine Cocaine Screen NEGATIVE NEGATIVE Urine Cannabinoids Screen NEGATIVE NEGATIVE My Orders Orders - AMI HILL MD Acetaminophen (08/25/20 00:08) Alcohol (08/25/20 00:08) Cbc With Automated Diff (08/25/20 00:08) Comprehensive Metabolic Panel (08/25/20 00:08) Hs C Reactive Protein (08/25/20 00:08) Fibrin Degradation Products (08/25/20 00:08) Drug Screen Stat (Urine) (08/25/20 00:08) Hcg,Qualitative Serum (08/25/20 00:08) Magnesium (08/25/20 00:08) Salicylate (08/25/20 00:08) Thyroid Analyzer (08/25/20 00:08) Ua Culture If Indicated (08/25/20 00:08) Ed Iv/Invasive Line Start (08/25/20 00:08) Lactated Ringers (Lr 1000 Ml Iv Solution (08/25/20 00:15) Medications Given in ED Current Medications Medications Dose Ordered Sig/Heron Route Start Time Stop Time Status Last Admin Dose Admin Lactated Ringer's 1,000 ml @ 0 mls/hr Q0M ONCE IV 08/25/20 00:15 08/25/20 00:16 DC 08/25/20 00:43 999 MLS/HR Vital Signs/I&O 08/25/20 00:00 Temp 36.7 Pulse 98 Resp 16 B/P (MAP) 142/96 (111) O2 Delivery Room Air Progress Progress Note : Progress Note Seen and evaluated. IV, labs and UA ordered. We will try to get records from [facility] from visit on 08/21/2020. Patient has already had multiple CT scans in the last few months and I worry about radiation accumulation. We will try to avoid that at this point. Does not describe any new injuries and this appears to be an ongoing problem and certainly started before work-up at [facility]. Those records will help. Monitor patient. 0140: I have received paperwork from [facility] regarding ER visit. During that visit, patient had similar presentation and report. No significant abnormal findings noted on labs, CT head, MRI head or otherwise. The case was discussed with Dr. Hawk at the time and he recommended follow-up this coming week. Patient is to call the office for appointment. Question of possible complex migraine. I did rediscuss this with the patient. 0222: Patient is doing much better. I did review the results with her. We discussed options and she states she just needs to call her neurologist in the morning for which I agree. I did ask her about feeling okay to go home and she states that she does and does have a ride here. All que stions answered. Discharged home with return precautions. Patient verbalized understanding of instructions and agreement with plan. I did discuss with her the importance of finding a local physician for primary care. Departure Impression Primary Impression: Weakness Additional Impression: Transient neurological symptoms Disposition: HOME, SELF-CARE Condition: Stable Departure-Patient Inst. Decision time for Depature: 02:24 Referrals: ANÍBAL TRUJILLO MD (PCP/Family) Primary Care Physician Patient Instructions: Generalized Weakness (DC) Add. Discharge Instructions: Continue follow-up with your neurologist. Call his office in the morning for appointment this week. Return for worse pain, weakness, breathing problems, vision or balance problems or other concerns as needed. It is very important that you find a local primary care physician either here in [place] or in [place]. AMI HILL MD Aug 25, 2020 00:25
[2020-08-25 00:55] LABS: BILIRUBIN,URINE NEGATIVE (NEGATIVE); CLARITY,URINE SL CLOUDY; COLOR,URINE YELLOW; GLUCOSE, URINE (UA) NEGATIVE (NEGATIVE); KETONES,URINE NEGATIVE (NEGATIVE); LEUKOCYTE ESTERASE ,URINE NEGATIVE (NEGATIVE); NITRITE,URINE NEGATIVE (NEGATIVE); PROTEIN,URINE NEGATIVE (NEGATIVE)
[2020-08-25 00:58] LABS: BASOPHILS % (AUTO) 1 % (0-10); CHLORIDE 110 MMOL/L (98-107); EOSINOPHILS # (AUTO) 0.1 10^3/uL (0.0-0.3); EOSINOPHILS % (AUTO) 2 % (0-10); HEMATOCRIT 43 % (35-52); LYMPHOCYTES # (AUTO) 2.6 10^3/uL (1.0-4.0); LYMPHOCYTES % (AUTO) 33 % (12-44); MEAN CORPUSCULAR HEMOGLOBIN 28 pg (25-34); MEAN CORPUSCULAR HGB CONC 33 g/dL (32-36); MEAN CORPUSCULAR VOLUME 87 fL (80-99); MEAN PLATELET VOLUME 11.7 fL (9.0-12.2); MONOCYTES # (AUTO) 0.6 10^3/uL (0.0-1.0); MONOCYTES % (AUTO) 7 % (0-12); NEUTROPHILS # (AUTO) 4.6 10^3/uL (1.8-7.8); NEUTROPHILS % (AUTO) 58 % (42-75); PLATELET COUNT 242 10^3/uL (130-400); POTASSIUM 3.8 MMOL/L (3.6-5.0); SODIUM 144 MMOL/L (135-145); WHITE BLOOD COUNT 7.9 10^3/uL (4.3-11.0)
[2020-08-25 01:01] LABS: CALCIUM 8.9 MG/DL (8.5-10.1)
[2020-08-25 01:02] LABS: GLUCOSE 102 MG/DL (70-105); TOTAL PROTEIN 6.5 GM/DL (6.4-8.2)
[2020-08-25 01:03] LABS: BILIRUBIN,TOTAL 0.3 MG/DL (0.1-1.0); CARBON DIOXIDE 24 MMOL/L (21-32)
[2020-08-25 01:05] LABS: ALKALINE PHOSPHATASE 137 U/L (40-136); CREATININE SERUM 0.74 MG/DL (0.60-1.30); GFR ESTIMATED > 60
[2020-08-25 01:07] LABS: BUN/CREATININE RATIO 15
[2020-08-25 01:08] LABS: ALANINE AMINOTRANSFERASE 24 U/L (0-55); MAGNESIUM 1.9 MG/DL (1.6-2.4); SALICYLATE < 5.0 MG/DL (5.0-20.0)
[2020-08-25 01:12] LABS: AMPHETAMINE SCREEN, URINE NEGATIVE (NEGATIVE); BARBITURATE SCREEN URINE NEGATIVE (NEGATIVE); BENZODIAZEPINES SCREEN URINE NEGATIVE (NEGATIVE); CANNABINOID SCREEN, URINE NEGATIVE (NEGATIVE); COCAINE SCREEN URINE NEGATIVE (NEGATIVE); METHADONE STAT NEGATIVE (NEGATIVE); METHAMPHETAMINE SCREEN URINE S NEGATIVE (NEGATIVE); OPIATE SCREEN URINE POSITIVE (NEGATIVE); OXYCODONE STAT NEGATIVE (NEGATIVE); PROPOXYPHENE STAT NEGATIVE (NEGATIVE); TRICYCLIC ANTIDEPRESSANTS SCRE NEGATIVE (NEGATIVE)
[2020-08-25 01:13] LABS: BACTERIA,URINE TRACE /HPF; WBC,URINE RARE /HPF
[2020-08-25 01:14] LABS: ACETAMINOPHEN < 10 UG/ML (10-30)
[2020-08-25 01:29] LABS: TSH (THYROID ANALYZER) 1.02 UIU/ML (0.35-4.94)
[2020-08-25 02:33] VITALS: BP 109/76
== END 2020-08-25 02:33 | disposition home or self-care (01) ==
LOC: EDUNIT# 23:49 → ER 23:52
DX: R53.1 Weakness (principal); R29.818 Other symptoms and signs involving the nervous system; E66.9 Obesity, unspecified; F17.210 Nicotine dependence, cigarettes, uncomplicated; Z88.8 Allergy status to other drugs, medicaments and biological substances; Z68.34 Body mass index [BMI] 34.0-34.9, adult; Z79.52 Long term (current) use of systemic steroids
CPT/HCPCS: 80053; 80306; 81000; 83735; 84443; 84703; 85025; 85379; 86141; 99284; G0480 ×3; 36415; 80320; 80329

== ENCOUNTER 2021-02-17 00:27 | Emergency (ER) | payer OTHER ==
[~2021-02-17] VITALS: Ht 170.2 cm; Wt 90.9 kg
[2021-02-17] MEDS ORDERED: NS IV 1000 ML 1,000 ML IV SCH (00:45)
--- NOTE | 2021-02-17 00:48 | ED Cardiac General ---
History of Present Illness General Stated Complaint: HEART RACING,CHEST PAIN Source: patient History of Present Illness Date Seen by Provider: Feb 17, 2021 Time Seen by Provider: 00:33 Initial Comments PT ARRIVES VIA POV FROM HOME C/O PALPITATIONS/ FEELING LIKE HER HEART IS RACING SINCE [address] HAS NOT CHECKED HER PULSE STATES SHE DID HAVE A SHARP PAIN IN THE CENTER OF HER CHEST WHEN IT STARTED, BUT NOT NOW SLIGHT SHORTNESS OF BREATH NO SWELLING IN LEGS/ FEET OR PAIN IN CALVES NO SWEATS NO GI SYMPTOMS HAS HISTORY OF SAME, NO TESTS OR DIAGNOSIS, PER PT PT HAS HAD "A COLD" SINCE 02/09/21--SINUS DRAINAGE, PRESSURE AND MILD COUGH HAS HAD A HEADACHE TODAY--HAS CHRONIC HEADACHES NO FEVER NO LOSS OF TASTE/SMELL ALWAYS HURTS IN HER NECK AND BACK, NO NEW BODY ACHES HAS NOT HAD COVID-19 VACCINE PT STATES SHE HAS HAD "ALOT" OF CAFFEINE TODAY--"3 CANS" STATES NORMALLY SHE HAS 1-2 CANS OF COFFEE A DAY ADDITIONALLY, PT STARTED ON ADDERALL IN THE LAST 2 WEEKS--STATES SHE GOT IT ONLINE. LMP--YEARS AGO, HAS IUD IN PLACE PCP: NONE PT STATES SHE LIVES IN [place], AND IS TRYING TO FIND A DR THERE. Allergies and Home Medications Allergies Coded Allergies: bisacodyl (Verified Allergy, Unknown, 05/12/20) Home Medications Meclizine HCl 25 Mg Tablet, 50 MG PO Q6 PRN for DIZZINESS Prescribed by: ISIDRO STOVER on 06/10/202030 Methylprednisolone 4 Mg Tab.ds.pk, 4 MG PO UD PER DOSE PACK INSTRUCTIONS Prescribed by: ISIDRO STOVER on 06/10/202034 Nitrofurantoin Monohyd/M-Cryst 100 Mg Capsule, 1 TAB PO BID Prescribed by: ISIDRO STOVER on 06/10/202034 Ondansetron 4 Mg Tab.rapdis, 4 MG PO Q4H Prescribed by: ISIDRO STOVER on 06/10/202030 Scopolamine 1 Each Patch.td72, 1 EACH TD Q72H Prescribed by: ISIDRO STOVER on 06/10/202030 Patient Home Medication List Home Medication List Reviewed: Yes Review of Systems Review of Systems Constitutional: no symptoms reported EENTM: No Symptoms Reported Respiratory: See HPI Cardiovascular: See HPI Gastrointestinal: No Symptoms Reported Genitourinary: No Symptoms Reported Musculoskeletal: no symptoms reported Skin: no symptoms reported Psychiatric/Neurological: No Symptoms Reported Endocrine: No Symptoms Reported Hematologic/Lymphatic: No Symptoms Reported Past Lfcwvss-Ifpihe-Zdhquo Hx Patient Social History Tobacco Use?: Yes (1-2 PPD) Smoking Status: Current Everyday Smoker Substance use?: Yes (THC IN PAST) Substance type: Marijuana Alcohol Use?: Yes (HX OF HEAVY USE, NOW RARELY USES) Immunizations Up To Date Tetanus Booster (TDap): Unknown Seasonal Allergies Seasonal Allergies: No Past Medical History Surgeries: Yes (GASTRIC BYPASS WITH REVISION) Abdominal, Gallbladder Respiratory: No Cardiac: Yes (MITRAL VALVE LEAK) Heart Murmur, Palpitations 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 oz. 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 Skin: Normal Color, Warm/Dry, Tattoos/Piercings (MUJLTIPLE TATTOOS) Progress/Results/Core Measures Results/Orders Lab Results Laboratory Tests Test 02/17/21 00:45 7/13/21 00:53 Range/Units White Blood Count 11.6 H 4.3-11.0 10^3/uL Red Blood Count 5.59 H 3.80-5.11 10^6/uL Hemoglobin 16.1 H 11.5-16.0 g/dL Hematocrit 49 35-52 % Mean Corpuscular Volume 88 80-99 fL Mean Corpuscular Hemoglobin 29 25-34 pg Mean Corpuscular Hemoglobin Concent 33 32-36 g/dL Red Cell Distribution Width 12.5 10.0-14.5 % Platelet Count 282 130-400 10^3/uL Mean Platelet Volume 11.5 9.0-12.2 fL Immature Granulocyte % (Auto) 0 % Neutrophils (%) (Auto) 58 42-75 % Lymphocytes (%) (Auto) 32 12-44 % Monocytes (%) (Auto) 8 0-12 % Eosinophils (%) (Auto) 1 0-10 % Basophils (%) (Auto) 1 0-10 % Neutrophils # (Auto) 6.7 1.8-7.8 10^3/uL Lymphocytes # (Auto) 3.7 1.0-4.0 10^3/uL Monocytes # (Auto) 0.9 0.0-1.0 10^3/uL Eosinophils # (Auto) 0.1 0.0-0.3 10^3/uL Basophils # (Auto) 0.1 0.0-0.1 10^3/uL Immature Granulocyte # (Auto) 0.0 0.0-0.1 10^3/uL Erythrocyte Sedimentation Rate 2 0-20 MM/HR Sodium Level 144 135-145 MMOL/L Potassium Level 3.3 L 3.6-5.0 MMOL/L Chloride Level 107 98-107 MMOL/L Carbon Dioxide Level 24 21-32 MMOL/L Anion Gap 13 5-14 MMOL/L Blood Urea Nitrogen 15 7-18 MG/DL Creatinine 0.88 0.60-1.30 MG/DL Estimat Glomerular Filtration Rate > 60 BUN/Creatinine Ratio 17 Glucose Level 81 70-105 MG/DL Calcium Level 9.5 8.5-10.1 MG/DL Corrected Calcium 8.5-10.1 MG/DL Magnesium Level 2.1 1.6-2.4 MG/DL Total Bilirubin 0.4 0.1-1.0 MG/DL Aspartate Amino Transf (AST/SGOT) 13 5-34 U/L Alanine Aminotransferase (ALT/SGPT) 17 0-55 U/L Alkaline Phosphatase 116 40-136 U/L Lactate Dehydrogenase 153 125-220 U/L Total Creatine Kinase 20 L 29-168 U/L Creatine Kinase MB 0.4 <6.6 NG/ML Troponin I < 0.028 <0.028 NG/ML C-Reactive Protein High Sensitivity 0.10 0.00-0.50 MG/DL B-Type Natriuretic Peptide < 10.0 <100.0 PG/ML Total Protein 7.4 6.4-8.2 GM/DL Albumin 4.7 H 3.2-4.5 GM/DL TSH [place] Testing 1.60 0.35-4.94 UIU/ML Serum Test, Qualitative NEGATIVE NEGATIVE Influenza Type A (RT-PCR) Not Detected Not Detecte Influenza Type B (RT-PCR) Not Detected Not Detecte SARS-CoV-2 RNA (RT-PCR) Not Detected Not Detecte Urine Color YELLOW Urine Clarity CLEAR Urine pH 6.0 5-9 Urine Specific [place] <=1.005 1.016-1.022 Urine Protein NEGATIVE NEGATIVE Urine Glucose (UA) NEGATIVE NEGATIVE Urine Ketones NEGATIVE NEGATIVE Urine Nitrite NEGATIVE NEGATIVE Urine Bilirubin NEGATIVE NEGATIVE Urine Urobilinogen 0.2 < = 1.0 MG/DL Urine Leukocyte Esterase NEGATIVE NEGATIVE Urine RBC (Auto) NEGATIVE NEGATIVE Urine RBC NONE /HPF Urine WBC NONE /HPF Urine Squamous Epithelial Cells 2-5 /HPF Urine Crystals NONE /LPF Urine Bacteria TRACE /HPF Urine Casts NONE /LPF Urine Mucus NEGATIVE /LPF Urine Culture Indicated NO Urine Opiates Screen NEGATIVE NEGATIVE Urine Oxycodone Screen NEGATIVE NEGATIVE Urine Methadone Screen NEGATIVE NEGATIVE Urine Propoxyphene Screen NEGATIVE NEGATIVE Urine Barbiturates Screen NEGATIVE NEGATIVE Ur Tricyclic Antidepressants Screen NEGATIVE NEGATIVE Urine Phencyclidine Screen NEGATIVE NEGATIVE Urine Amphetamines Screen POSITIVE H NEGATIVE Urine Methamphetamines Screen NEGATIVE NEGATIVE Urine Benzodiazepines Screen NEGATIVE NEGATIVE Urine Cocaine Screen NEGATIVE NEGATIVE Urine Cannabinoids Screen NEGATIVE NEGATIVE My Orders Orders - ISIDRO STOVER DO Ed Iv/Invasive Line Start (02/17/21 00:33) Ekg Tracing (02/17/21 00:33) Monitor-Rhythm Ecg Trace Only (02/17/21 00:33) BNP (02/17/21 00:33) Cbc With Automated Diff (02/17/21 00:33) Comprehensive Metabolic Panel (02/17/21 00:33) Creatine Kinase (02/17/21 00:33) Creatine Kinase Mb (02/17/21 00:33) Drug Screen Stat (Urine) (02/17/21 00:33) Hcg,Qualitative Serum (02/17/21 00:33) Magnesium (02/17/21 00:33) Thyroid Analyzer (02/17/21 00:33) Ua Culture If Indicated (02/17/21 00:33) Troponin I (02/17/21 00:33) Procalcitonin (Pct) (02/17/21 00:45) Hs C Reactive Protein (02/17/21 00:45) Erythrocyte Sedimentation Rate (02/17/21 00:45) LDH (02/17/21 00:45) Chest 1 View, Ap/Pa Only (02/17/21 00:45) Covid 19 Inhouse Test (02/17/21 00:45) Influenza A And B By Pcr (02/17/21 00:45) Ed Iv/Invasive Line Start (02/17/21 00:45) Ns Iv 1000 Ml (Sodium Chloride 0.9%) (02/17/21 00:45) Potassium Chloride (Tablet) (Klor Con Ta (02/17/21 02:00) Vital Signs/I&O 02/17/21 02/17/21 00:35 00:35 Temp 35.9 Pulse 98 Resp 18 B/P (MAP) 139/90 (106) Pulse Ox 99 O2 Delivery Room Air Room Air Progress Progress Note : Progress Note UNEVENTFUL ER STAY HR 73 AT DISMISSAL Initial ECG Impression Date: Feb 17, 2021 Initial ECG Impression Time: 00:37 Initial ECG Rate: 103 Initial ECG Rhythm: S.Tach Initial ECG Impression: Nonspecific Changes Diagnostic Imaging Comments CXR--NO ACUTE PROCESS, PENDING RADIOLOGIST REVIEW Reviewed: Reviewed by Me Departure Impression Primary Impression: Palpitations Additional Impressions: AMPHETAMINE USE/ADDERALL USE Caffeine use Disposition: 01 HOME, SELF-CARE Condition: Stable Departure-Patient Inst. Decision time for Depature: 01:50 Referrals: NO,LOCAL PHYSICIAN (PCP/Family) Primary Care Physician Patient Instructions: Amphetamine, Palpitations (DC) Add. Discharge Instructions: AVOID CAFFEINE AVOID STIMULANT USE, INCLUDING ADDERALL FOLLOW UP WITH OF CHOICE THIS WEEK FOR FURTHER CARE Work/School Note: Local Medical Staff Listing JOLANTA,ISIDRO K DO Feb 17, 2021 00:48
[2021-02-17 00:55] LABS: BASOPHILS # (AUTO) 0.1 10^3/uL (0.0-0.1); BASOPHILS % (AUTO) 1 % (0-10); EOSINOPHILS # (AUTO) 0.1 10^3/uL (0.0-0.3); EOSINOPHILS % (AUTO) 1 % (0-10); HEMATOCRIT 49 % (35-52); HEMOGLOBIN 16.1 g/dL (11.5-16.0); LYMPHOCYTES # (AUTO) 3.7 10^3/uL (1.0-4.0); LYMPHOCYTES % (AUTO) 32 % (12-44); MEAN CORPUSCULAR HEMOGLOBIN 29 pg (25-34); MEAN CORPUSCULAR HGB CONC 33 g/dL (32-36); MEAN CORPUSCULAR VOLUME 88 fL (80-99); MEAN PLATELET VOLUME 11.5 fL (9.0-12.2); MONOCYTES # (AUTO) 0.9 10^3/uL (0.0-1.0); MONOCYTES % (AUTO) 8 % (0-12); NEUTROPHILS # (AUTO) 6.7 10^3/uL (1.8-7.8); NEUTROPHILS % (AUTO) 58 % (42-75); PLATELET COUNT 282 10^3/uL (130-400); WHITE BLOOD COUNT 11.6 10^3/uL (4.3-11.0)
[2021-02-17 00:59] LABS: BILIRUBIN,URINE NEGATIVE (NEGATIVE); CLARITY,URINE CLEAR; COLOR,URINE YELLOW; GLUCOSE, URINE (UA) NEGATIVE (NEGATIVE); KETONES,URINE NEGATIVE (NEGATIVE); LEUKOCYTE ESTERASE ,URINE NEGATIVE (NEGATIVE); NITRITE,URINE NEGATIVE (NEGATIVE); PROTEIN,URINE NEGATIVE (NEGATIVE)
[2021-02-17 01:06] LABS: BACTERIA,URINE TRACE /HPF
[2021-02-17 01:08] LABS: ALBUMIN 4.7 GM/DL (3.2-4.5); CHLORIDE 107 MMOL/L (98-107); POTASSIUM 3.3 MMOL/L (3.6-5.0); SODIUM 144 MMOL/L (135-145)
[2021-02-17 01:09] LABS: CALCIUM 9.5 MG/DL (8.5-10.1)
[2021-02-17 01:11] LABS: GLUCOSE 81 MG/DL (70-105); TOTAL PROTEIN 7.4 GM/DL (6.4-8.2)
[2021-02-17 01:12] LABS: BILIRUBIN,TOTAL 0.4 MG/DL (0.1-1.0); CARBON DIOXIDE 24 MMOL/L (21-32)
[2021-02-17 01:13] LABS: AMPHETAMINE SCREEN, URINE POSITIVE (NEGATIVE); BARBITURATE SCREEN URINE NEGATIVE (NEGATIVE); BENZODIAZEPINES SCREEN URINE NEGATIVE (NEGATIVE); CANNABINOID SCREEN, URINE NEGATIVE (NEGATIVE); COCAINE SCREEN URINE NEGATIVE (NEGATIVE); METHADONE STAT NEGATIVE (NEGATIVE); METHAMPHETAMINE SCREEN URINE S NEGATIVE (NEGATIVE); OPIATE SCREEN URINE NEGATIVE (NEGATIVE); OXYCODONE STAT NEGATIVE (NEGATIVE); PROPOXYPHENE STAT NEGATIVE (NEGATIVE); TRICYCLIC ANTIDEPRESSANTS SCRE NEGATIVE (NEGATIVE)
[2021-02-17 01:13] LABS: ERYTHROCYTE SEDIMENTATION RATE 2 MM/HR (0-20)
[2021-02-17 01:14] LABS: ALKALINE PHOSPHATASE 116 U/L (40-136); CREATININE SERUM 0.88 MG/DL (0.60-1.30); GFR ESTIMATED > 60
[2021-02-17 01:15] LABS: BUN/CREATININE RATIO 17
[2021-02-17 01:17] LABS: ALANINE AMINOTRANSFERASE 17 U/L (0-55); MAGNESIUM 2.1 MG/DL (1.6-2.4)
[2021-02-17 01:18] LABS: CREATINE KINASE 20 U/L (29-168)
[2021-02-17 01:23] LABS: CREATINE KINASE MB 0.4 NG/ML (<6.6)
[2021-02-17] MEDS ORDERED: KCL 10 MEQ TAB (MICRO K) PO ONE ×2 (02:00→02:01)
[2021-02-17 02:08] VITALS: BP 120/84
--- NOTE | 2021-02-17 08:17 | Diagnostic Imaging Report ---
PATIENT HISTORY: Chest pain. TECHNIQUE: Single frontal view of the chest. COMPARISON: 05/12/2020 FINDINGS: The lung volumes are normal. No focal consolidation is seen. No large pleural effusion or pneumothorax is seen. The cardiomediastinal silhouette is normal in size and contour. No acute osseous abnormality is seen. IMPRESSION: No acute pulmonary abnormality seen. Dictated by: Dictated on workstation # [id number]
== END 2021-02-17 02:08 | disposition home or self-care (01) ==
LOC: EDUNIT# 00:27 → ER 00:30
DX: R00.2 Palpitations (principal); F15.90 Other stimulant use, unspecified, uncomplicated; F17.200 Nicotine dependence, unspecified, uncomplicated; Z20.822 Contact with and (suspected) exposure to COVID-19; Z79.52 Long term (current) use of systemic steroids
CPT/HCPCS: 36415; 71045; 80053; 80306; 81000; 82550; 82553; 83615; 83735; 83880; 84145; 84443; 84484; 84703; 85025; 85652; 86141; 87636; 93005; 93041

== ENCOUNTER 2021-02-21 22:58 | Emergency (ER) | payer OTHER ==
[~2021-02-21] VITALS: Ht 170.2 cm; Wt 99.7 kg
[2021-02-21] MEDS ORDERED: ORPHENADRINE 60 MG/2 ML (NORFLEX) AMP (ED ONLY) IM ONE (23:45)
[2021-02-21] MEDS ORDERED: KETOROLAC 60 MG/2 ML VIAL IM ONE (23:45)
--- NOTE | 2021-02-21 23:53 | ED Headache ---
General Chief Complaint: Head/Cervical Problems Stated Complaint: MIGRAINE Nursing Triage Note: left anterior headache radiating to left jaw/neck similiar to previous headaches since 1200 02/21/21 Source: patient Exam Limitations: no limitations History of Present Illness Date Seen by Provider: Feb 21, 2021 Time Seen by Provider: 23:25 Initial Comments Patient to ER by private conveyance with chief complaint that after about noon she started experiencing some tension in her neck. She is going to physical therapy for the muscles of her neck and shoulders. This developed a headache. She has a history of migraine headaches. Is having some photophobia. She uses Botox and follows with Dr. Hawk neurology in [place] as well as Dr. Rand for primary care at [facility]. She took some Tylenol about an hour and a half prior to arrival and the pain was not getting better so she decided to come in. She has a history of gastric bypass in 2019. She says that usually a Toradol shot and a muscle relaxant shot helps when the tension headache is started by her muscle spasms in her shoulders. 7 out of 10. Pain is mostly on the left side of her head and face up her left neck. She has not had any fevers chills cough shortness of air nausea vomiting. She says she had a cold about a week or 2 ago. Allergies and Home Medications Allergies Coded Allergies: bisacodyl (Verified Allergy, Unknown, 05/12/20) Home Medications Meclizine HCl 25 Mg Tablet, 50 MG PO Q6 PRN for DIZZINESS Prescribed by: ISIDRO STOVER on 06/10/202030 Methylprednisolone 4 Mg Tab.ds.pk, 4 MG PO UD PER DOSE PACK INSTRUCTIONS Prescribed by: ISIDRO STOVER on 06/10/202034 Nitrofurantoin Monohyd/M-Cryst 100 Mg Capsule, 1 TAB PO BID Prescribed by: ISIDRO STOVER on 06/10/202034 Ondansetron 4 Mg Tab.rapdis, 4 MG PO Q4H Prescribed by: ISIDRO STOVER on 06/10/202030 Scopolamine 1 Each Patch.td72, 1 EACH TD Q72H Prescribed by: ISIDRO STOVER on 06/10/202030 Patient Home Medication List Home Medication List Reviewed: Yes Review of Systems Review of Systems Constitutional: No chills, No fever, No malaise Eyes: Denies Blindness, Denies Blurred Vision Ears, Nose, Mouth, Throat: see HPI (Nasal congestion); denies ear pain, denies nose pain Respiratory: No cough Cardiovascular: No chest pain, No Hx of Intervention, No palpitations Gastrointestinal: No abdominal pain, No nausea, No vomiting Genitourinary: No discharge, No dysuria Musculoskeletal: No back pain; neck pain Skin: No dryness, No lesions Psychiatric/Neurological: Headache; Denies Numbness, Denies Paresthesia All Other Systems Reviewed Negative Unless Noted: Yes Past Oxvtcug-Ngifak-Boldsh Hx Patient Social History Tobacco Use?: Yes Tobacco type used: Cigarettes Smoking Status: Current Everyday Smoker Use of E-Cig and/or Vaping dev: No Substance use?: No Alcohol Use?: No Pt feels they are or have been: No Immunizations Up To Date Tetanus Booster (TDap): Unknown Seasonal Allergies Seasonal Allergies: No Past Medical History Surgery/Hospitalization HX: multiple migraines/month Surgeries: Yes (GASTRIC BYPASS WITH REVISION) Abdominal, Gallbladder Respiratory: No Cardiac: Yes (MITRAL VALVE LEAK) Heart Murmur, Palpitations 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 Genitourinary: No Gastrointestinal: Yes (GASTRIC BYPASS WITH REVISION; CHRONIC NAUSEA) Musculoskeletal: Yes (CHRONIC GENERALIZED PAIN--MORPHINE AND FLEXERIL DAILY) Fibromyalgia, Chronic Back Pain Endocrine: No HEENT: Yes (GLASSES) Cancer: No Psychosocial: Yes ADD/ADHD, Anxiety, Depression Integumentary: No Blood Disorders: No Family Medical History No Pertinent Family Hx Physical Exam Vital Signs Vital Signs - First Documented 02/21/21 23:00 Temp 36.5 Pulse 87 Resp 16 B/P (MAP) 136/102 (113) Pulse Ox 98 O2 Delivery Room Air Capillary Refill : Less Than 3 Seconds Height, Weight, BMI Height: '" Weight: lbs. oz. kg; 34.00 BMI Method: General Appearance: WD/WN, mild distress HEENT: PERRL/EOMI, normal ENT inspection, TMs normal, pharynx normal Neck: full range of motion, supple, tender lateral (Left side paraspinous muscles are in spasm.); No tender midline; other (Trapezius and superior spinous are in spasm.) Cardiovascular: normal peripheral pulses, regular rate, rhythm Respiratory: lungs clear, normal breath sounds, no respiratory distress, no accessory muscle use Psychiatric: alert, oriented x 3 Crainal Nerves: normal hearing, normal speech, PERRL Coordination/Gait: normal gait Motor/Sensory: no motor deficit, no sensory deficit Skin: normal color, warm/dry Procedures/Interventions Progress Trigger point injection using 1 cc of 2% lidocaine with epinephrine and 1 cc of half percent Marcaine without epinephrine. We cleaned the site with chlorhexidine and allowed it to dry appropriately. We inserted a 27-gauge 1-1/2 inch needle and aspirated nothing out. We then injected the site just lateral to her left side of her C7. Patient is feeling some relief within about 2 to 3 minutes after the injection was applied. Sterile bandage was applied over the site. Progress/Results/Core Measures Results/Orders My Orders Orders - SAMMI SANCHES Ketorolac Injection (Toradol Injection) (02/21/21 23:45) Orphenadrine Inj (Ed Only) (Norflex Inje (02/21/21 23:45) Vital Signs/I&O 02/21/21 23:00 Temp 36.5 Pulse 87 Resp 16 B/P (MAP) 136/102 (113) Pulse Ox 98 O2 Delivery Room Air Blood Pressure Mean: 113 Progress Progress Note : Time: 23:50 Progress Note Neurologically intact young female with no red flag signs. Her headache seems to be more of a tension headache that may be triggering a migraine headache for which she has chronically. Seems to be stemming from the tension from strain of her paraspinous muscles and shoulder muscles which she is under physical therapy for. It is possible since she had a cold a week or so ago that she is having a torticollis. We discussed what she would like and we discussed the risks, benefits and alternatives to using an single dose NSAID with her history of gastric bypass and the patient is okay with a one-time dose. She says she does not routinely take NSAIDs. We will give her a shot of Toradol and a trigger point injection using Marcaine and lidocaine with epinephrine. Departure Impression Primary Impression: Left shoulder strain Qualified Codes: S46.912A - Strain of unspecified muscle, fascia and tendon at shoulder and upper arm level, left arm, initial encounter Additional Impressions: Cervical paraspinous muscle spasm Tension headache Migraine headache without aura Qualified Codes: G43.009 - Migraine without aura, not intractable, without status migrainosus Disposition: HOME, SELF-CARE Condition: Stable Departure-Patient Inst. Decision time for Depature: 00:11 Referrals: NO,LOCAL PHYSICIAN (PCP/Family) Primary Care Physician Patient Instructions: Tension Headache, Muscle Spasm ED Add. Discharge Instructions: You might try the muscle relaxants if necessary. You can expect about 6 to 8 hours of numbness at the site and typically 50% chance that you will have long-term decrease in pain in the area. Continue to use Tylenol. Follow-up with your primary care doctor or pain management doctor All discharge instructions reviewed with patient and/or family. Voiced understanding. SAMMI SANCHES Feb 21, 2021 23:53
[2021-02-22 00:17] VITALS: BP 114/79
== END 2021-02-22 00:17 | disposition home or self-care (01) ==
LOC: EDUNIT# 22:58 → ER 23:01
DX: S46.912A Strain of unspecified muscle, fascia and tendon at shoulder and upper arm level, left arm, initial encounter (principal); M62.838 Other muscle spasm; G43.009 Migraine without aura, not intractable, without status migrainosus; F17.210 Nicotine dependence, cigarettes, uncomplicated; Z79.52 Long term (current) use of systemic steroids; X58.XXXA Exposure to other specified factors, initial encounter
CPT/HCPCS: 99284

== ENCOUNTER 2021-03-04 13:26 | Emergency (ER) | payer OTHER ==
[~2021-03-04] VITALS: Ht 170.1 cm; Wt 90.0 kg
[2021-03-04] MEDS ORDERED: KETOROLAC 60 MG/2 ML VIAL IM ONE (14:15)
[2021-03-04] MEDS ORDERED: LIDOCAINE 1% INJ 20 ML 20 ML VIAL INJ ONE (14:15)
--- NOTE | 2021-03-04 14:27 | ED Headache ---
General Chief Complaint: Head/Cervical Problems Stated Complaint: MIGRAINE Nursing Triage Note: Arrival to ER with migraine x2 days. Hx of migraines. Source: patient Exam Limitations: no limitations (OVI CASANOVA APRN) History of Present Illness Date Seen by Provider: Mar 04, 2021 Time Seen by Provider: 14:24 Initial Comments To ER with a tension type headache that starts in the back of her neck mostly on the right side but a little on the left. This began 2 days ago, radiates up to the front of her forehead. Had some nausea earlier but none currently. Timing/Duration: 1 week Severity/Quality: moderate Location: frontal Associated Symptoms: denies symptoms (OVI CASANOVA APRN) Allergies and Home Medications Allergies Coded Allergies: bisacodyl (Verified Allergy, Unknown, 05/12/20) Home Medications Meclizine HCl 25 Mg Tablet, 50 MG PO Q6 PRN for DIZZINESS Prescribed by: ISIDRO STOVER on 06/10/202030 Methylprednisolone 4 Mg Tab.ds.pk, 4 MG PO UD PER DOSE PACK INSTRUCTIONS Prescribed by: ISIDRO STOVER on 06/10/202034 Nitrofurantoin Monohyd/M-Cryst 100 Mg Capsule, 1 TAB PO BID Prescribed by: ISIDRO STOVER on 06/10/202034 Ondansetron 4 Mg Tab.rapdis, 4 MG PO Q4H Prescribed by: ISIDRO STOVER on 06/10/202030 Scopolamine 1 Each Patch.td72, 1 EACH TD Q72H Prescribed by: ISIDRO STOVER on 06/10/202030 Patient Home Medication List Home Medication List Reviewed: Yes (OVI CASANOVA APRN) Review of Systems Review of Systems Constitutional: see HPI Eyes: No Symptoms Reported Ears, Nose, Mouth, Throat: no symptoms reported Respiratory: no symptoms reported Cardiovascular: no symptoms reported Genitourinary: no symptoms reported Musculoskeletal: see HPI Skin: no symptoms reported Psychiatric/Neurological: Headache (OVI CASANOVA APRN) Past Vrqsnpq-Pjvmwz-Ficrql Hx Patient Social History Tobacco Use?: Yes Tobacco type used: Cigarettes Smoking Status: Current Everyday Smoker Use of E-Cig and/or Vaping dev: No Substance use?: No Alcohol Use?: No Pt feels they are or have been: No (OVI CASANOVA APRN) Immunizations Up To Date Tetanus Booster (TDap): Unknown Influenza Vaccine Up-to-Date: No; Not Current (OVI CASANOVA APRN) Seasonal Allergies Seasonal Allergies: No (OVI CASANOVA APRN) Past Medical History Surgery/Hospitalization HX: multiple migraines/month Surgeries: Yes (GASTRIC BYPASS WITH REVISION) Abdominal, Gallbladder Respiratory: No Cardiac: Yes (MITRAL VALVE LEAK) Heart Murmur, Palpitations 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 Genitourinary: No Gastrointestinal: Yes (GASTRIC BYPASS WITH REVISION; CHRONIC NAUSEA) Musculoskeletal: Yes (CHRONIC GENERALIZED PAIN--MORPHINE AND FLEXERIL DAILY) Fibromyalgia, Chronic Back Pain Endocrine: No HEENT: Yes (GLASSES) Cancer: No Psychosocial: Yes ADD/ADHD, Anxiety, Depression Integumentary: No Blood Disorders: No (OVI CASANOVA APRN) Family Medical History No Pertinent Family Hx (OVI CASANOVA APRN) Physical Exam Vital Signs Vital Signs - First Documented 03/04/21 13:50 Temp 36.8 Pulse 81 Resp 16 B/P (MAP) 112/83 (93) Pulse Ox 100 O2 Delivery Room Air (LOIS JORGE MD) Vital Signs Capillary Refill : Less Than 3 Seconds (OVI CASANOVA APRN) Height, Weight, BMI Height: '" Weight: lbs. oz. kg; 31.00 BMI Method: General Appearance: WD/WN, no apparent distress HEENT: PERRL/EOMI, normal ENT inspection Neck: non-tender, full range of motion Respiratory: no respiratory distress, no accessory muscle use Extremities: normal range of motion, non-tender Psychiatric: alert, oriented x 3 Crainal Nerves: normal hearing, normal speech, PERRL Motor/Sensory: no motor deficit, no sensory deficit Skin: normal color, warm/dry (OVI CASANOVA APRN) Progress/Results/Core Measures Results/Orders Vital Signs/I&O 03/04/21 03/04/21 13:50 14:45 Temp 36.8 Pulse 81 74 Resp 16 16 B/P (MAP) 112/83 (93) 117/80 Pulse Ox 100 99 O2 Delivery Room Air Room Air (LOIS JORGE MD) Blood Pressure Mean: 93 Departure Communication (Admissions) Offered her Toradol and Norflex injection. She would prefer just the Toradol a nd she states last time she was here she had a cervical paraspinous injection of lidocaine last time which was very helpful for her. She like to repeat this again. As such I did a cervical paraspinous injection at C5-C6 bilaterally. This was with a total of 3 mL of lidocaine divided equally between sides. (OVI CASANOVA APRN) Impression Primary Impression: Tension headache Disposition: 01 HOME, SELF-CARE Condition: Stable Departure-Patient Inst. Decision time for Depature: 14:26 (OVI CASANOVA APRN) Referrals: NO,LOCAL PHYSICIAN (PCP/Family) Primary Care Physician Patient Instructions: Headache, Adult (DC) ATTENDING PHYSICIAN NOTE: I was physically present as attending physician in the emergency department during the care of this patient, but I was not directly involved in the decision making or delivery of care for this patient. (LOIS JORGE MD) OVI CASANOVA APRN Mar 04, 2021 14:26 LOIS JORGE MD Mar 05, 2021 07:11
[2021-03-04 14:45] VITALS: BP 117/80
== END 2021-03-04 14:45 | disposition home or self-care (01) ==
LOC: EDUNIT# 13:26 → ER 13:27
DX: G44.209 Tension-type headache, unspecified, not intractable (principal); F17.210 Nicotine dependence, cigarettes, uncomplicated
CPT/HCPCS: 99284

== ENCOUNTER 2021-03-20 05:08 | Emergency (ER) | payer SELFPAY ==
[~2021-03-20] VITALS: Ht 170 cm; Wt 90.0 kg
--- NOTE | 2021-03-20 05:42 | ED Neck-Back Pain/Injury ---
General Chief Complaint: Head/Cervical Problems Stated Complaint: BACK OF NECK & RT SHOULDER HURT Nursing Triage Note: PT PRESENTS TO ED AMBULATORY FROM HOME C/O POSTERIOR SHOULDER PAIN THAT MOVES INTO THE BASE OF HER NECK. PT VERBALIZES A HX OF MIGRAINES WELL NECK AND SHOULDER PAIN CHRONICALLY. PT DENIES NV, DENIES BLURRED VISION. Source of Information: Patient (EXTREMELY VAGUE AND SOMEWHAT DIFFICULT HISTORIAN) History of Present Illness Date Seen by Provider: Mar 20, 2021 Time Seen by Provider: 05:33 Initial Comments PT ARRIVES VIA POV FROM HOME IN [place] C/O POSTERIOR NECK AND RIGHT UPPER BACK/POSTERIOR SHOULDER PAIN SINCE 2299 LAST NIGHT NO PARESTHESIAS OR MOTOR DEFICITS. NO RADICULAR PAIN THIS IS A CHRONIC PROBLEM NO INJURY TOOK A TYLENOL AND TRIED A LIDOCAINE PATCH, BUT TOOK IT OFF PT LIVES IN [place] STATES SHE DOES NOT HAVE A DR ANYWHERE, BUT IS ON A "WAITING LIST IN [place] OR [place]" PT TAKES ADDERALL, WHICH SHE STATES SHE GETS "ONLINE" PT HAS HAD MULTIPLE VISITS--9-- HERE SINCE 05/2020, LAST VISIT 03/04/21, FOR THIS SAME PROBLEM ALSO SEEN HERE 02/17/21 AND 02/22/21 PT CLAIMS SHE DOES NOT TAKE ANY MEDICATIONS EXCEPT ADDERALL, BUT ON RECENT ER VISITS, SHE HAS REPORTED THAT SHE TAKES MORPHINE AND FLEXERIL EVERY DAY FOR CHRONIC GENERALIZED PAIN ON ER VISIT IN JUNE 2020, PT HAD REPORTED THAT SHE JUST MOVED HERE FROM [place], AND HAD REPORTED THAT SHE WAS ON MULTIPLE MEDICATIONS FOR CHRONIC PAIN, PSYCH ISSUES, AND HAD REPORTED AT THAT TIME THAT SHE WAS ESTABLISHED WITH [facility]. Tyler TRUJILLO Allergies and Home Medications Allergies Coded Allergies: bisacodyl (Verified Allergy, Unknown, 05/12/20) Home Medications Meclizine HCl 25 Mg Tablet, 50 MG PO Q6 PRN for DIZZINESS Prescribed by: ISIDRO STOVER on 06/10/202030 Methylprednisolone 4 Mg Tab.ds.pk, 4 MG PO UD PER DOSE PACK INSTRUCTIONS Prescribed by: ISIDRO STOVER on 06/10/202034 Nitrofurantoin Monohyd/M-Cryst 100 Mg Capsule, 1 TAB PO BID Prescribed by: ISIDRO STOVER on 06/10/202034 Ondansetron 4 Mg Tab.rapdis, 4 MG PO Q4H Prescribed by: ISIDRO STOVER on 06/10/202030 Scopolamine 1 Each Patch.td72, 1 EACH TD Q72H Prescribed by: ISIDRO STOVER on 06/10/202030 Patient Home Medication List Home Medication List Reviewed: Yes Review of Systems Constitutional: no symptoms reported : No (LMP 2 YEARS AGO) Control/STD Prophylaxis: IUD Musculoskeletal: see HPI Psychiatric/Neurological: Headache; Denies Numbness, Denies Paresthesia, Denies Tingling, Denies Weakness Past Ejdmhyu-Duqxrj-Chbwgg Hx Patient Social History Tobacco Use?: Yes (1-2 PPD) Tobacco type used: Cigarettes Smoking Status: Current Everyday Smoker Substance use?: Yes Substance type: Marijuana Additional substance use comme: THC IN PAST Alcohol Use?: Yes (HX OF HEAVY USE, NOW ONLY OCCASIONALLY DRINKS) Immunizations Up To Date Tetanus Booster (TDap): Unknown Influenza Vaccine Up-to-Date: Yes; Up-to-Date Seasonal Allergies Seasonal Allergies: No Past Medical History Surgery/Hospitalization HX: GALLBLADDER, GASTRIC BYPASS WITH REVISION Surgeries: Yes (GASTRIC BYPASS WITH REVISION) Abdominal, Gallbladder Respiratory: No Cardiac: Yes (MITRAL VALVE LEAK) Heart Murmur, Palpitations Neurological: Yes (MULTIPLE HEADACHES/ MONTH) Headaches /Migraines Last Menstrual Period: Mar 08, 2019 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 Genitourinary: No Gastrointestinal: Yes (GASTRIC BYPASS WITH REVISION; CHRONIC NAUSEA) Musculoskeletal: Yes (CHRONIC GENERALIZED PAIN--MORPHINE AND FLEXERIL DAILY) Fibromyalgia, Chronic Back Pain Endocrine: No HEENT: Yes (GLASSES) Cancer: No Psychosocial: Yes ADD/ADHD, Anxiety, Depression Integumentary: No Blood Disorders: No Family Medical History No Pertinent Family Hx Physical Exam Vital Signs Vital Signs - First Documented 03/20/21 05:22 Temp 36.7 Pulse 99 Resp 16 B/P (MAP) 121/78 (92) Pulse Ox 98 O2 Delivery Room Air Capillary Refill : Less Than 3 Seconds Height, Weight, BMI Height: '" Weight: lbs. oz. kg; 31.00 BMI Method: General Appearance: No Apparent Distress, WD/WN, Other (HAIR IS HOT PINK; ACTS VERY "SPACEY" --IS UNABLE TO WALK AND TALK AT THE SAME TIME, HAS TO STOP WALKING AND STARES INTO SPACE FOR SEVERAL SECONDS BEFORE SHE CAN ANSWER VERY SIMPLE YES/NO QUESTIONS. ) Neck: Full Range of Motion, Other (TENDERNESS TO RIGHT POSTERIOR/LATERAL NECK AND RIGHT TRAPEZIUS MUSCLE--PALPATION REPRODUCES PAIN ) Cardiovascular: Regular Rate, Rhythm, No Edema, No Murmur Respiratory: Lungs Clear, Normal Breath Sounds Back: No CVA Tenderness, No Vertebral Tenderness, Other ( ABOVE) Extremity: Normal Capillary Refill, Normal Inspection, Normal Range of Motion, Non Tender, No Pedal Edema Neurologic/Psychiatric: Alert, Oriented x3, No Motor/Sensory Deficits, ui engineer II- XII Norm as Tested Skin: Normal Color, Warm/Dry, Other (EXTENSIVE TATTOOS, EXTENSIVE SORES/SCARS/SCABS TO FACE, UPPER CHEST, SHOULDERS/UPPER BACK. NO SIGNS OF INFECTION) Progress/Results/Core Measures Results/Orders Lab Results Laboratory Tests Test 03/20/21 05:48 Range/Units Urine Color YELLOW Urine Clarity SL CLOUDY Urine pH 6.0 5-9 Urine Specific [place] 1.025 H 1.016-1.022 Urine Protein NEGATIVE NEGATIVE Urine Glucose (UA) NEGATIVE NEGATIVE Urine Ketones TRACE H NEGATIVE Urine Nitrite NEGATIVE NEGATIVE Urine Bilirubin NEGATIVE NEGATIVE Urine Urobilinogen 0.2 < = 1.0 MG/DL Urine Leukocyte Esterase NEGATIVE NEGATIVE Urine RBC (Auto) NEGATIVE NEGATIVE Urine RBC NONE /HPF Urine WBC 2-5 /HPF Urine Squamous Epithelial Cells 25-50 H /HPF Urine Renal Epithelial Cells NONE /HPF Urine Crystals NONE /LPF Urine Bacteria LARGE H /HPF Urine Casts NONE /LPF Urine Mucus NEGATIVE /LPF Urine Culture Indicated NO Urine Test NEGATIVE NEGATIVE Urine Opiates Screen NEGATIVE NEGATIVE Urine Oxycodone Screen NEGATIVE NEGATIVE Urine Methadone Screen NEGATIVE NEGATIVE Urine Propoxyphene Screen NEGATIVE NEGATIVE Urine Barbiturates Screen NEGATIVE NEGATIVE Ur Tricyclic Antidepressants Screen NEGATIVE NEGATIVE Urine Phencyclidine Screen NEGATIVE NEGATIVE Urine Amphetamines Screen POSITIVE H NEGATIVE Urine Methamphetamines Screen NEGATIVE NEGATIVE Urine Benzodiazepines Screen NEGATIVE NEGATIVE Urine Cocaine Screen NEGATIVE NEGATIVE Urine Cannabinoids Screen NEGATIVE NEGATIVE My Orders Orders - ISIDRO STOVER DO Ketorolac Injection (Toradol Injection) (03/20/21 05:45) Drug Screen Stat (Urine) (03/20/21 05:42) Hcg,Qualitative Urine (03/20/21 05:42) Ua Culture If Indicated (03/20/21 05:42) Medications Given in ED Current Medications Medications Dose Ordered Sig/Heron Route Start Time Stop Time Status Last Admin Dose Admin Ketorolac Tromethamine 60 mg ONCE ONCE IM 03/20/21 05:45 03/20/21 05:46 DC 03/20/21 05:58 60 MG Vital Signs/I&O 03/20/21 03/20/21 05:22 06:09 Temp 36.7 36.7 Pulse 99 72 Resp 16 16 B/P (MAP) 121/78 (92) 104/64 (92) Pulse Ox 98 100 O2 Delivery Room Air Room Air Blood Pressure Mean: 92 Progress Progress Note : Progress Note PT AGREES TO TORADOL SHOT, BUT 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 Decision time for Depature: 05:40 Referrals: NO,LOCAL PHYSICIAN (PCP/Family) Primary Care Physician Patient Instructions: Upper Back Pain ED, Chronic Neck Pain (DC) Add. Discharge Instructions: MOIST HEAT TO SORE AREAS AT 20 MINUTE INTERVALS FOLLOW UP WITH OF CHOICE NEXT WEEK FOR FURTHER CARE All discharge instructions reviewed with patient and/or family. Voiced understanding. ISIDRO STOVER DO Mar 20, 2021 05:42
[2021-03-20] MEDS ORDERED: KETOROLAC 60 MG/2 ML VIAL IM ONE (05:45)
[2021-03-20 05:57] LABS: BILIRUBIN,URINE NEGATIVE (NEGATIVE); CLARITY,URINE SL CLOUDY; COLOR,URINE YELLOW; GLUCOSE, URINE (UA) NEGATIVE (NEGATIVE); KETONES,URINE TRACE (NEGATIVE); LEUKOCYTE ESTERASE ,URINE NEGATIVE (NEGATIVE); NITRITE,URINE NEGATIVE (NEGATIVE); PROTEIN,URINE NEGATIVE (NEGATIVE)
[2021-03-20 06:03] LABS: HCG,QUALITATIVE URINE NEGATIVE (NEGATIVE)
[2021-03-20 06:05] LABS: BACTERIA,URINE LARGE /HPF; SQUAMOUS EPITHELIAL CELL,UR 25-50 /HPF
[2021-03-20 06:08] LABS: AMPHETAMINE SCREEN, URINE POSITIVE (NEGATIVE); BARBITURATE SCREEN URINE NEGATIVE (NEGATIVE); BENZODIAZEPINES SCREEN URINE NEGATIVE (NEGATIVE); CANNABINOID SCREEN, URINE NEGATIVE (NEGATIVE); COCAINE SCREEN URINE NEGATIVE (NEGATIVE); METHADONE STAT NEGATIVE (NEGATIVE); METHAMPHETAMINE SCREEN URINE S NEGATIVE (NEGATIVE); OPIATE SCREEN URINE NEGATIVE (NEGATIVE); OXYCODONE STAT NEGATIVE (NEGATIVE); PROPOXYPHENE STAT NEGATIVE (NEGATIVE); TRICYCLIC ANTIDEPRESSANTS SCRE NEGATIVE (NEGATIVE)
[2021-03-20 06:09] VITALS: BP 104/64
== END 2021-03-20 06:07 | disposition home or self-care (01) ==
LOC: EDUNIT# 05:08 → ER 05:11
DX: G89.29 Other chronic pain (principal); M54.2 Cervicalgia; M54.9 Dorsalgia, unspecified; F17.210 Nicotine dependence, cigarettes, uncomplicated; Z79.52 Long term (current) use of systemic steroids
CPT/HCPCS: 80306; 81000; 84703; 99284

== ENCOUNTER 2021-08-07 17:11 | Emergency (ER) | payer SELFPAY ==
[~2021-08-07] VITALS: Ht 170.2 cm; Wt 77.1 kg
[~2021-08-07 17:11] MED LIST changes: +SCOP1PAT10 TD; -SCOP1PAT11 TD
--- NOTE | 2021-08-07 17:28 | ED Cough/URI ---
General Stated Complaint: FEVER/CHILLS/ N/V/D Source: patient Exam Limitations: no limitations History of Present Illness Date Seen by Provider: Aug 07, 2021 Time Seen by Provider: 17:25 Initial Comments Patient is a 31-year-old female who presents ED with flulike symptoms. She reports body aches, fatigue and generalized weakness for the past week. Patient states symptoms became worse today when she was getting her prescriptions. She states she started to feel nauseous, dizzy and the feeling of vomiting. She states she felt like she was going to pass out. Had several episodes of diarrhea. She started drinking patties today. She has been having nasal congestion, sinus pressure for the past week. Denies any cough, abdominal pain, chest pain, shortness of breath. She states she feels feverish with chills. Mild discomfort with urination. Not concern for . History of gastric bypass surgery. She states she feels dehydrated with "kidney pain". She denies of any chest pain, heart disease, headache, neck pain, visual changes, ear pain. Allergies and Home Medications Allergies Coded Allergies: bisacodyl (Verified Allergy, Unknown, 05/12/20) Patient Home Medication List Home Medication List Reviewed: Yes Fluticasone Propionate (Flonase Allergy Relief) 9.9 Ml [place].susp, 2 SPRAY NS DAILY Prescribed by: MARCELO JHA on 08/07/211828 Meclizine HCl (Meclizine HCl) 25 Mg Tablet, 50 MG PO Q6 PRN for DIZZINESS Prescribed by: ISIDRO STOVER on 06/10/202030 Methylprednisolone (Medrol) 4 Mg Tab.ds.pk, 4 MG PO UD Prescribed by: ISIDRO STOVER on 06/10/202034 Nitrofurantoin Monohyd/M-Cryst (Macrobid 100 mg Capsule) 100 Mg Capsule, 1 TAB PO BID Prescribed by: ISIDRO STOVER on 06/10/202034 Ondansetron (Ondansetron Odt) 4 Mg Tab.rapdis, 4 MG PO Q4H Prescribed by: ISIDRO STOVER on 06/10/202030 Scopolamine (Transderm-Scop) 1 Each Patch.td72, 1 EACH TD Q72H Prescribed by: ISIDRO STOVER on 11/3/20 2031 Review of Systems Review of Systems Constitutional: chills, dizziness, fever, malaise, weakness EENTM: nose congestion; No hearing loss, No ear pain, No eye pain, No throat swelling Respiratory: No cough, No orthopnea, No short of breath Gastrointestinal: No abdominal pain, No constipation; diarrhea, nausea Genitourinary: No decreased output; dysuria; No frequency Musculoskeletal: back pain; No joint pain Skin: No change in color, No change in hair/nails Past Botwjib-Hoisjy-Kzzyyq Hx Immunizations Up To Date Tetanus Booster (TDap): Unknown Seasonal Allergies Seasonal Allergies: No Past Medical History Surgery/Hospitalization HX: GALLBLADDER, GASTRIC BYPASS WITH REVISION Surgeries: Yes (GASTRIC BYPASS WITH REVISION) Abdominal, Gallbladder Respiratory: No Cardiac: Yes (MITRAL VALVE LEAK) Heart Murmur, Palpitations Neurological: Yes (MULTIPLE HEADACHES/ MONTH) Headaches /Migraines 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 oz. kg; 31.00 BMI Method: General Appearance: WD/WN, no apparent distress Eyes: Bilateral Eye Normal Inspection, Bilateral Eye PERRL, Bilateral Eye EOMI HEENT: PERRL/EOMI, normal ENT inspection, TMs normal, pharynx normal Neck: non-tender, full range of motion, supple, normal inspection Respiratory: chest non-tender, lungs clear, normal breath sounds, no respiratory distress, no accessory muscle use Cardiovascular: no edema, no gallop, no JVD, no murmur, tachycardia Gastrointestinal: normal bowel sounds, non tender, soft, no organomegaly, no pulsatile mass Extremities: normal range of motion, non-tender, normal inspection, no pedal edema, no calf tenderness Neurologic/Psychiatric: almond paste mixer II-XII nml as tested, no motor/sensory deficits, alert, normal mood/affect, oriented x 3 Skin: normal color, warm/dry Lymphatic: no adenopathy Progress/Results/Core Measures Suspected Sepsis SIRS Temperature: Pulse: Respiratory Rate: Laboratory Tests 08/07/21 17:32: White Blood Count 4.4 Blood Pressure / Mean: Laboratory Tests 08/07/21 17:32: Creatinine 0.72, Platelet Count 154, Total Bilirubin 0.2 Results/Orders Lab Results Laboratory Tests Test 08/07/21 17:32 08/07/21 17:35 08/07/21 18:30 Range/Units White Blood Count 4.4 4.3-11.0 10^3/uL Red Blood Count 5.10 3.80-5.11 10^6/uL Hemoglobin 14.9 11.5-16.0 g/dL Hematocrit 45 35-52 % Mean Corpuscular Volume 88 80-99 fL Mean Corpuscular Hemoglobin 29 25-34 pg Mean Corpuscular Hemoglobin Concent 33 32-36 g/dL Red Cell Distribution Width 13.6 10.0-14.5 % Platelet Count 154 130-400 10^3/uL Mean Platelet Volume 11.6 9.0-12.2 fL Immature Granulocyte % (Auto) 0 % Neutrophils (%) (Auto) 67 42-75 % Lymphocytes (%) (Auto) 25 12-44 % Monocytes (%) (Auto) 8 0-12 % Eosinophils (%) (Auto) 0 0-10 % Basophils (%) (Auto) 0 0-10 % Neutrophils # (Auto) 3.0 1.8-7.8 10^3/uL Lymphocytes # (Auto) 1.1 1.0-4.0 10^3/uL Monocytes # (Auto) 0.3 0.0-1.0 10^3/uL Eosinophils # (Auto) 0.0 0.0-0.3 10^3/uL Basophils # (Auto) 0.0 0.0-0.1 10^3/uL Immature Granulocyte # (Auto) 0.0 0.0-0.1 10^3/uL Sodium Level 141 135-145 MMOL/L Potassium Level 3.3 L 3.6-5.0 MMOL/L Chloride Level 107 98-107 MMOL/L Carbon Dioxide Level 23 21-32 MMOL/L Anion Gap 11 5-14 MMOL/L Blood Urea Nitrogen 11 7-18 MG/DL Creatinine 0.72 0.60-1.30 MG/DL Estimat Glomerular Filtration Rate 94 BUN/Creatinine Ratio 15 Glucose Level 181 H 70-105 MG/DL Calcium Level 8.2 L 8.5-10.1 MG/DL Corrected Calcium 8.4 L 8.5-10.1 MG/DL Total Bilirubin 0.2 0.1-1.0 MG/DL Aspartate Amino Transf (AST/SGOT) 18 5-34 U/L Alanine Aminotransferase (ALT/SGPT) 25 0-55 U/L Alkaline Phosphatase 92 40-136 U/L C-Reactive Protein High Sensitivity 0.79 H 0.00-0.50 MG/DL Total Protein 6.3 L 6.4-8.2 GM/DL Albumin 3.8 3.2-4.5 GM/DL Lipase 43 8-78 U/L Influenza Type A (RT-PCR) Not Detected Not Detecte Influenza Type B (RT-PCR) Not Detected Not Detecte SARS-CoV-2 RNA (RT-PCR) Detected H Not Detecte Urine Color ORANGE Urine Clarity CLEAR Urine pH 5.5 5-9 Urine Specific [place] >=1.030 1.016-1.022 Urine Protein TRACE H NEGATIVE Urine Glucose (UA) 1+ H NEGATIVE Urine Ketones NEGATIVE NEGATIVE Urine Nitrite NEGATIVE NEGATIVE Urine Bilirubin NEGATIVE NEGATIVE Urine Urobilinogen 0.2 < = 1.0 MG/DL Urine Leukocyte Esterase NEGATIVE NEGATIVE Urine RBC (Auto) NEGATIVE NEGATIVE Urine RBC NONE /HPF Urine WBC 2-5 /HPF Urine Squamous Epithelial Cells NONE /HPF Urine Renal Epithelial Cells NONE /HPF Urine Crystals NONE /LPF Urine Bacteria NEGATIVE /HPF Urine Casts NONE /LPF Urine Mucus NEGATIVE /LPF Urine Culture Indicated NO Urine Test NEGATIVE NEGATIVE My Orders Orders - JOSEFINA JOHNSON Cbc With Automated Diff (08/07/21 17:23) Comprehensive Metabolic Panel (08/07/21 17:23) Lipase (08/07/21 17:23) Hs C Reactive Protein (08/07/21 17:23) Covid 19 Inhouse Test (08/07/21 17:23) Influenza A And B By Pcr (08/07/21 17:23) Ns Iv 1000 Ml (Sodium Chloride 0.9%) (08/07/21 17:30) Ondansetron Injection (Zofran Injectio (08/07/21 17:30) Ua Culture If Indicated (08/07/21 17:23) Hcg,Qualitative Urine (08/07/21 17:23) Medications Given in ED Current Medications Medications Dose Ordered Sig/Heron Route Start Time Stop Time Status Last Admin Dose Admin Ondansetron HCl 4 mg ONCE ONCE IVP 08/07/21 17:30 08/07/21 17:31 DC 08/07/21 17:36 4 MG Vital Signs/I&O 08/07/21 08/07/21 17:17 17:17 Temp 36.7 Pulse 107 Resp 17 B/P (MAP) 126/78 (94) O2 Delivery Room Air Room Air Capillary Refill : Departure Communication (Admissions) Patient with flulike symptoms. Covid positive. She was slightly tachycardic. She states she feels dehydrated. Was given a liter of fluid. Urinalysis negative for infection or . Lab work was otherwise unremarkable. Patient denies any chest pain, shortness of breath. No abdominal tenderness. Patient is otherwise healthy. History of gastric bypass. She is not currently on any type of medication. Patient did not meet criteria for the monoclonal infusion. Patient is 7 days in the. Recommend conservative treatment at home. Recommend hydration. She shows no signs of respiratory distress. Recommend quarantine at home until 14 days of the start of the symptoms. If any worsening symptoms return back to ED for further evaluation. Patient requesting Flonase which was provided. Impression Primary Impression: COVID-19 Disposition: HOME, SELF-CARE Condition: Stable Departure-Patient Inst. Decision time for Depature: 18:28 Referrals: NO,LOCAL PHYSICIAN (PCP/Family) Primary Care Physician Patient Instructions: COVID-19 (DC) Scripts Fluticasone Propionate (Flonase Allergy Relief) 9.9 Ml [place].susp 2 SPRAY NS DAILY, #1 EACH 2 SPRAYS PER NOSTRIL DAILY X 2 DAYS THEN 1 SPRAY DAILY Prov: JOSEFINA JOHNSON 08/07/21 Work/School Note: Family Work Note, Work Release Form Date Seen in the Emergency Department: Aug 07, 2021 Return to Work: Aug 15, 2021 JOSEFINA JOHNSON Aug 07, 2021 17:28
[2021-08-07] MEDS ORDERED: NS IV 1000 ML 1,000 ML IV SCH (17:30)
[2021-08-07] MEDS ORDERED: ONDANSETRON 4 MG/2 ML (SDV) Z0FRAN IVP ONE (17:30)
[2021-08-07 17:38] LABS: BASOPHILS % (AUTO) 0 % (0-10); EOSINOPHILS % (AUTO) 0 % (0-10); HEMATOCRIT 45 % (35-52); HEMOGLOBIN 14.9 g/dL (11.5-16.0); LYMPHOCYTES # (AUTO) 1.1 10^3/uL (1.0-4.0); LYMPHOCYTES % (AUTO) 25 % (12-44); MEAN CORPUSCULAR HEMOGLOBIN 29 pg (25-34); MEAN CORPUSCULAR HGB CONC 33 g/dL (32-36); MEAN CORPUSCULAR VOLUME 88 fL (80-99); MEAN PLATELET VOLUME 11.6 fL (9.0-12.2); MONOCYTES # (AUTO) 0.3 10^3/uL (0.0-1.0); MONOCYTES % (AUTO) 8 % (0-12); NEUTROPHILS % (AUTO) 67 % (42-75); PLATELET COUNT 154 10^3/uL (130-400); WHITE BLOOD COUNT 4.4 10^3/uL (4.3-11.0)
[2021-08-07 17:50] LABS: ALBUMIN 3.8 GM/DL (3.2-4.5); POTASSIUM 3.3 MMOL/L (3.6-5.0)
[2021-08-07 17:51] LABS: CALCIUM 8.2 MG/DL (8.5-10.1)
[2021-08-07 17:53] LABS: TOTAL PROTEIN 6.3 GM/DL (6.4-8.2)
[2021-08-07 17:55] LABS: BILIRUBIN,TOTAL 0.2 MG/DL (0.1-1.0)
[2021-08-07 17:56] LABS: CREATININE SERUM 0.72 MG/DL (0.60-1.30)
[2021-08-07] MEDS ORDERED: FLUT9.9S NS (18:29)
[2021-08-07 18:36] LABS: BILIRUBIN,URINE NEGATIVE (NEGATIVE); CLARITY,URINE CLEAR; COLOR,URINE ORANGE; GLUCOSE, URINE (UA) 1+ (NEGATIVE); KETONES,URINE NEGATIVE (NEGATIVE); LEUKOCYTE ESTERASE ,URINE NEGATIVE (NEGATIVE); NITRITE,URINE NEGATIVE (NEGATIVE); PH,URINE 5.5 (5-9); PROTEIN,URINE TRACE (NEGATIVE)
[2021-08-07 18:44] LABS: BACTERIA,URINE NEGATIVE /HPF
[2021-08-07 18:59] VITALS: BP 141/67
== END 2021-08-07 18:59 | disposition home or self-care (01) ==
LOC: EDUNIT# 17:11 → ER 17:13
DX: U07.1 COVID-19 (principal); Z97.5 Presence of (intrauterine) contraceptive device; Z32.02 Encounter for pregnancy test, result negative
CPT/HCPCS: 36415; 80053; 81000; 83690; 84703; 85025; 86141; 87636; 99283

== ENCOUNTER 2021-10-13 02:47 | Emergency (ER) | payer SELFPAY ==
[~2021-10-13] VITALS: Ht 170.2 cm; Wt 72.6 kg
[~2021-10-13 02:47] MED LIST changes: +FLUT9.9S NS
--- NOTE | 2021-10-13 03:20 | ED General ---
General Chief Complaint: General Problems/Pain Stated Complaint: GASTRIC BYPASS SURGERY ISSUES Nursing Triage Note: Pt arrives via POV from home with multiple c/o. Pt reports hx of gastric bypass in 2019, states she is supposed to be taking vitamin supplements, states she has not taken these for three years because she does not have insurance. 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) History of Present Illness Date Seen by Provider: Oct 13, 2021 Time Seen by Provider: 03:10 Initial Comments PT ARRIVES VIA POV FROM [place]--LIVES IN [place] STATES SHE HAD GASTRIC BYPASS IN 2019 AND HAD A REVISION IN 2019--WHILE LIVING IN [place] MOVED TO [facility] IN [address] HAS NOT SEEN A DR IN OVER A YEAR, AND DOES NOT HAVE A DR ANYWHERE--HAS NOT ATTEMPTED TO ESTABLISH WITH A DR SINCE MOVING HERE IN 2019 STATES SHE IS SUPPOSED TO BE ON VITAMINS, BUT HAS NOT TAKEN ANY FOR A LONG TIME, STATES SHE CAN'T AFFORD THEM BECAUSE SHE DOESN'T HAVE A JOB, DOESN'T HAVE ANY MONEY AND DOESN'T HAVE ANY INSURANCE STATES SHE GOT HER WATER TURNED OFF 1 1/2 WEEKS AGO AND NOW WANTS HER VITAMIN LEVELS CHECKED, AND THINKS SHE MIGHT BE DEHYDRATED STATES SHE HAS BEEN DRINKING OTHER LIQUIDS, AND HAS BEEN URINATING A NORMAL AMOUNT STATES SHE SLEPT ALOT ALL WEEKEND AND IS COLD. PT HAS NO OTHER PHYSICAL COMPLAINTS PT DENIES BEING HOMELESS. SYMPTOMS ARE NO DIFFERENT TONIGHT AND HAS NOT SOUGHT CARE UNTIL TONIGHT DROVE HERE FROM [facility] 11 VISITS TO THIS FACILITY SINCE 05/2020 FOR VARIOUS COMPLAINTS, MANY FOR PAIN COMPLAINTS--HAS REPORTED THAT SHE TAKES MORPHINE AND FLEXERIL DAILY ON PRIOR VISITS, WELL GETTING ADDERALL "ONLINE" PT ALSO SMOKES 1-2 PPD, ALSO USES [facility] PCP: NONE--DOES NOT HAVE A DR ANYWHERE Allergies and Home Medications Allergies Coded Allergies: bisacodyl (Verified Allergy, Unknown, 05/12/20) Patient Home Medication List Home Medication List Reviewed: Yes Fluticasone Propionate (Flonase Allergy Relief) 9.9 Ml [place].susp, 2 SPRAY NS DAILY Prescribed by: MARCELO JHA on 08/07/211828 Meclizine HCl (Meclizine HCl) 25 Mg Tablet, 50 MG PO Q6 PRN for DIZZINESS Prescribed by: ISIDRO STOVER on 06/10/202030 Methylprednisolone (Medrol) 4 Mg Tab.ds.pk, 4 MG PO UD Prescribed by: ISIDRO STOVER on 06/10/202034 Nitrofurantoin Monohyd/M-Cryst (Macrobid 100 mg Capsule) 100 Mg Capsule, 1 TAB PO BID Prescribed by: ISIDRO STOVER on 06/10/202034 Ondansetron (Ondansetron Odt) 4 Mg Tab.rapdis, 4 MG PO Q4H Prescribed by: ISIDRO STOVER on 06/10/202030 Scopolamine (Transderm-Scop) 1 Each Patch.td72, 1 EACH TD Q72H Prescribed by: ISIDRO STOVER on 06/10/202030 Review of Systems Review of Systems Constitutional: see HPI Respiratory: no symptoms reported Cardiovascular: no symptoms reported Gastrointestinal: no symptoms reported Genitourinary: no symptoms reported : No (NO PERIOD FOR YEARS--HAS IUD IN PLACE) Musculoskeletal: no symptoms reported Skin: no symptoms reported Psychiatric/Neurological: No Symptoms Reported Past Oqviubg-Azpyzh-Lchqkg Hx Patient Social History Tobacco Use?: Yes Tobacco type used: Cigarettes Smoking Status: Current Everyday Smoker Use of E-Cig and/or Vaping dev: No Substance use?: No Alcohol Use?: No Pt feels they are or have been: No Immunizations Up To Date Tetanus Booster (TDap): Unknown Influenza Vaccine Up-to-Date: No; Not Current Seasonal Allergies Seasonal Allergies: No Past Medical History Surgery/Hospitalization HX: GALLBLADDER, GASTRIC BYPASS WITH REVISION Surgeries: Yes (GASTRIC BYPASS 2019 WITH REVISION IN 2019) Abdominal, Gallbladder Respiratory: No Cardiac: Yes ("MITRAL VALVE LEAK") Heart Murmur, Palpitations Neurological: Yes (MULTIPLE HEADACHES/ MONTH) 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 /Migraines 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 Genitourinary: No Gastrointestinal: Yes (GASTRIC BYPASS WITH REVISION; CHRONIC NAUSEA) Musculoskeletal: Yes (CHRONIC GENERALIZED PAIN--MORPHINE AND FLEXERIL DAILY) Fibromyalgia, Chronic Back Pain Endocrine: No HEENT: Yes (GLASSES) Cancer: No Psychosocial: Yes ADD/ADHD, Anxiety, Depression Integumentary: No Blood Disorders: No Family Medical History No Pertinent Family Hx Physical Exam Vital Signs Vital Signs - First Documented 10/13/21 02:57 Temp 36.7 Pulse 96 Resp 18 B/P (MAP) 119/99 (106) Pulse Ox 99 O2 Delivery Room Air Capillary Refill : Less Than 3 Seconds Height, Weight, BMI Height: '" Weight: lbs. oz. kg; 25.00 BMI Method: General Appearance: No Apparent Distress, WD/WN, Other (DOES NOT APPEAR ILL OR TO BE IN ANY DISCOMFORT OR DISTRESS. 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- XII Norm as Tested Skin: Normal Color, Warm/Dry, Tattoos/Piercings (MULITPLE TATTOOS, MULTIPLE PIERCINGS), Other (SORES/SCARS/SCABS TO FACE) Progress/Results/Core Measures Suspected Sepsis SIRS Temperature: Pulse: 96 Respiratory Rate: 18 Blood Pressure 119 /99 Mean: 106 Results/Orders Vital Signs/I&O 10/13/21 02:57 Temp 36.7 Pulse 96 Resp 18 B/P (MAP) 119/99 (106) Pulse Ox 99 O2 Delivery Room Air Capillary Refill : Less Than 3 Seconds Blood Pressure Mean: 106 Progress Note : Progress Note VITALS ARE NORMAL NO EVIDENCE OF DEHYDRATION ON EXAM ADVISED PT THAT SHE NEEDS TO ESTABLISH WITH A PRIMARY DR FOR ROUTINE MEDICAL CARE Departure Impression Primary Impression: General medical exam Disposition: 01 HOME, SELF-CARE Condition: Stable Departure-Patient Inst. Decision time for Depature: 03:19 Referrals: NO,LOCAL PHYSICIAN (PCP/Family) Primary Care Physician Patient Instructions: Diet and Health Add. Discharge Instructions: FOLLOW UP WITH DR. OF CHOICE FOR ROUTINE MEDICAL CARE All discharge instructions reviewed with patient and/or family. Voiced unde rstanding. ISIDRO STOVER DO Oct 13, 2021 03:20
[2021-10-13 03:22] VITALS: BP 119/99
== END 2021-10-13 03:26 | disposition home or self-care (01) ==
LOC: EDUNIT# 02:47 → ER 02:51
DX: Z00.00 Encounter for general adult medical examination without abnormal findings (principal); G89.29 Other chronic pain; Z98.84 Bariatric surgery status; F17.210 Nicotine dependence, cigarettes, uncomplicated; F12.90 Cannabis use, unspecified, uncomplicated; Z88.8 Allergy status to other drugs, medicaments and biological substances
CPT/HCPCS: 99281